=== PATIENT | male | born 1960 | race Caucasian/White ===

== ENCOUNTER 2017-09-20 12:43 | Inpatient (IN) | payer MEDICAID ==
[~2017-09-20] VITALS: Ht 195.6 cm; Wt 159.4 kg
[2017-09-20] MEDS ORDERED: ipratropium/albuterol 3ml nebule NEB ONE (13:00)
[2017-09-20] MEDS ORDERED: CefTRIAXone 2gm/D5W 50ml 50 ML IV SCH (13:05)
[2017-09-20 13:25] LABS: BASOPHILS % (AUTO) 0.2 % (0-1); EOSINOPHILS % (AUTO) 0.4 % (0-6); HEMATOCRIT 31.5 % (42.0-52.0); HEMOGLOBIN 9.7 g/dl (14.0-17.9); LYMPHOCYTES # (AUTO) 0.5 X10'3 (1.1-4.8); LYMPHOCYTES % (AUTO) 6.3 % (21-51); MEAN CORPUSCULAR HEMOGLOBIN 25.7 PG (27.0-31.0); MEAN CORPUSCULAR HGB CONC 30.9 % (33.0-36.5); MEAN PLATELET VOLUME 8.7 FL (7.4-10.4); MONOCYTES # (AUTO) 0.8 X10'3 (0-0.9); MONOCYTES % (AUTO) 9.7 % (2-12); NEUTROPHILS # (AUTO) 6.8 X10'3 (1.8-7.7); NEUTROPHILS % (AUTO) 83.4 % (42-75); PLATELET COUNT 175 X10'3 (140-440); RED BLOOD COUNT 3.79 X10'6 (4.70-6.10); RED CELL DISTRIBUTION WIDTH 19.2 % (11.5-14.5); WHITE BLOOD COUNT 8.1 X10'3 (4.5-11.0)
[2017-09-20 13:51] LABS: ALANINE AMINOTRANSFERASE 26 U/L (12-78); ALBUMIN 3.3 G/DL (3.4-5.0); ALBUMIN/GLOBULIN RATIO 0.8 (1.1-1.5); ALKALINE PHOSPHATASE 75 IU/L (46-116); ANION GAP 4 (8-16); ASPARTATE AMINO TRANSFERASE 19 U/L (10-37); BILIRUBIN,TOTAL 0.7 MG/DL (0.1-1.0); BLOOD UREA NITROGEN 18 MG/DL (7-18); BUN/CREATININE RATIO 14.5 (5.4-32.0); CHLORIDE 103 MMOL/L (99-107); CREATININE 1.24 MG/DL (0.60-1.10); GLUCOSE 122 MG/DL (70-104); SODIUM 145 MMOL/L (135-145); TOTAL CARBON DIOXIDE 37.8 MMOL/L (24-32); TOTAL PROTEIN 7.7 G/DL (6.4-8.2); eGFR 60 ML/MIN
[2017-09-20] MEDS ORDERED: CARSR60C PO (13:51)
[2017-09-20] MEDS ORDERED: OMEP20TA5 PO (13:51)
[2017-09-20] MEDS ORDERED: COU4T PO (13:51)
[2017-09-20] MEDS ORDERED: FURO80TA87 PO (13:51)
[2017-09-20] MEDS ORDERED: COU5T PO ×2 (13:51)
[2017-09-20] MEDS ORDERED: METO100T14 PO (13:51)
[2017-09-20 13:56] LABS: ABG BASE EXCESS 6.7 mmol/L (-2.0-3.0); ABG HCO3 32.3 mmol/L (22.0-26.0); ABG OXYGEN SATURATION 85.2 % (95-98); ABG PCO2 (T) 51.5 mmHg (35.0-48.0); ABG PH (T) 7.415 (7.350-7.450); ABG PO2 (T) 49.1 mmHg (83-108); ALLEN'S TEST Positive; FCOHb 1.8 % (0.5-1.5); FLOW 2 L/min; FMetHb 0.3 % (0.3-1.12); FO2Hb 83.4 % (94-100); TOTAL HEMOGLOBIN 10.6 G/dl (14.0-18.0)
[2017-09-20] MEDS ORDERED: acetaminophen 325mg tablet PO PRN ×2 (16:00)
[2017-09-20] MEDS ORDERED: HYDROcodone/acetaminophen 5mg/325mg tablet PO PRN (16:00)
[2017-09-20] MEDS ORDERED: mag hydrox/Alum hydrox/simeth 30ml oral suspension PO PRN ×2 (16:00)
[2017-09-20] MEDS ORDERED: ondansetron/PF 4mg/2ml inj IV PRN ×2 (16:00)
[2017-09-20] MEDS ORDERED: morphine 4 MG/ML inj SYRINge IV PRN ×2 (16:00)
[2017-09-20] MEDS ORDERED: magnesium hydroxide 30ml (MOM) UD suspension PO PRN ×2 (16:00)
[2017-09-20 17:05] LABS: INR 2.2 INR; PROTHROMBIN TIME 22.5 SECONDS (9.0-12.0)
[2017-09-20] MEDS: diltiazem SR 60mg capsule (twice daily) PO SCH (19:12)
[2017-09-20] MEDS: furosemide 10 MG/1 ML 10ml inj IV SCH ×2 (19:13→20:00)
[2017-09-20] MEDS ORDERED: warfarin 3mg tablet PO ONE (21:00)
[2017-09-20 22:30] VITALS: BP 115/71
[2017-09-21] VITALS (7 sets, daily range): BP systolic 108–135; BP diastolic 61–77
[2017-09-21 01:29] LABS: ALANINE AMINOTRANSFERASE 22 U/L (12-78); ALBUMIN 3.1 G/DL (3.4-5.0); ALBUMIN/GLOBULIN RATIO 0.7 (1.1-1.5); ALKALINE PHOSPHATASE 72 IU/L (46-116); ANION GAP 6 (8-16); ASPARTATE AMINO TRANSFERASE 21 U/L (10-37); BILIRUBIN,TOTAL 0.6 MG/DL (0.1-1.0); BLOOD UREA NITROGEN 18 MG/DL (7-18); BUN/CREATININE RATIO 13.3 (5.4-32.0); CALCIUM 8.5 MG/DL (8.5-10.1); CHLORIDE 103 MMOL/L (99-107); CHOL/HDL RATIO 4.5 (0.00-4.99); CHOLESTEROL 122 MG/DL (0-200); CREATININE 1.35 MG/DL (0.60-1.10); GLUCOSE 111 MG/DL (70-104); HDL CHOLESTEROL 27 MG/DL (35-60); LDL CHOLESTEROL 83 MG/DL (50-100); POTASSIUM 3.8 MMOL/L (3.5-5.1); SODIUM 143 MMOL/L (135-145); TOTAL PROTEIN 7.3 G/DL (6.4-8.2); TRIGLYCERIDES 62 MG/DL (20-135); eGFR 54 ML/MIN
[2017-09-21 05:28] LABS: BASOPHILS % (AUTO) 0.3 % (0-1); EOSINOPHILS # (AUTO) 0.2 X10'3 (0-0.9); EOSINOPHILS % (AUTO) 1.9 % (0-6); HEMATOCRIT 30.8 % (42.0-52.0); HEMOGLOBIN 9.5 g/dl (14.0-17.9); LYMPHOCYTES # (AUTO) 0.6 X10'3 (1.1-4.8); MEAN CORPUSCULAR HEMOGLOBIN 25.7 PG (27.0-31.0); MEAN CORPUSCULAR HGB CONC 30.9 % (33.0-36.5); MEAN CORPUSCULAR VOLUME 83.2 FL (78-98); MEAN PLATELET VOLUME 9.1 FL (7.4-10.4); MONOCYTES % (AUTO) 12.8 % (2-12); NEUTROPHILS # (AUTO) 6.2 X10'3 (1.8-7.7); PLATELET COUNT 174 X10'3 (140-440); RED CELL DISTRIBUTION WIDTH 19.7 % (11.5-14.5)
[2017-09-21 05:31] LABS: INR 2.1 INR; PROTHROMBIN TIME 21.2 SECONDS (9.0-12.0)
[2017-09-21] MEDS: pantoprazole 40mg Tablet.DR PO SCH (07:14)
[2017-09-21] MEDS: furosemide 10 MG/1 ML 10ml inj IV SCH ×2 (07:16→20:14)
[2017-09-21] MEDS: CefTRIAXone 2gm/D5W 50ml 50 ML IV SCH (07:22)
[2017-09-21] MEDS: azithromycin/NS 500mg/250ml 250 ML IV SCH (08:55)
[2017-09-21] MEDS: diltiazem SR 60mg capsule (twice daily) PO SCH ×2 (08:55→20:14)
[2017-09-21] MEDS: metoprolol tartrate 50mg tablet PO SCH (10:50)
[2017-09-21] MEDS: ipratropium/albuterol 3ml nebule NEB PRN (16:12)
[2017-09-21] MEDS ORDERED: warfarin 3mg tablet PO ONE (21:00)
[2017-09-22] VITALS (8 sets, daily range): BP systolic 107–124; BP diastolic 59–82
[2017-09-22 06:11] LABS: BASOPHILS % (AUTO) 0.3 % (0-1); EOSINOPHILS # (AUTO) 0.2 X10'3 (0-0.9); EOSINOPHILS % (AUTO) 2.5 % (0-6); HEMOGLOBIN 9.1 g/dl (14.0-17.9); LYMPHOCYTES # (AUTO) 0.5 X10'3 (1.1-4.8); MEAN CORPUSCULAR HEMOGLOBIN 25.4 PG (27.0-31.0); MEAN CORPUSCULAR HGB CONC 30.4 % (33.0-36.5); MEAN CORPUSCULAR VOLUME 83.5 FL (78-98); MONOCYTES % (AUTO) 12.2 % (2-12); NEUTROPHILS # (AUTO) 6.5 X10'3 (1.8-7.7); PLATELET COUNT 179 X10'3 (140-440); RED CELL DISTRIBUTION WIDTH 19.8 % (11.5-14.5); WHITE BLOOD COUNT 8.3 X10'3 (4.5-11.0)
[2017-09-22 06:13] LABS: INR 2.1 INR; PROTHROMBIN TIME 20.9 SECONDS (9.0-12.0)
[2017-09-22 06:19] LABS: ALANINE AMINOTRANSFERASE 21 U/L (12-78); ALBUMIN 3.1 G/DL (3.4-5.0); ALBUMIN/GLOBULIN RATIO 0.6 (1.1-1.5); ALKALINE PHOSPHATASE 75 IU/L (46-116); ANION GAP 3 (8-16); ASPARTATE AMINO TRANSFERASE 20 U/L (10-37); BILIRUBIN,TOTAL 0.6 MG/DL (0.1-1.0); BLOOD UREA NITROGEN 20 MG/DL (7-18); BUN/CREATININE RATIO 13.8 (5.4-32.0); CALCIUM 8.8 MG/DL (8.5-10.1); CHLORIDE 103 MMOL/L (99-107); CREATININE 1.45 MG/DL (0.60-1.10); GLUCOSE 106 MG/DL (70-104); POTASSIUM 3.8 MMOL/L (3.5-5.1); SODIUM 145 MMOL/L (135-145); TOTAL CARBON DIOXIDE 39.3 MMOL/L (24-32); eGFR 50 ML/MIN
[2017-09-22] MEDS: pantoprazole 40mg Tablet.DR PO SCH (08:38)
[2017-09-22] MEDS: CefTRIAXone 2gm/D5W 50ml 50 ML IV SCH (08:39)
[2017-09-22] MEDS: diltiazem SR 60mg capsule (twice daily) PO SCH ×2 (08:39→20:01)
[2017-09-22] MEDS: azithromycin/NS 500mg/250ml 250 ML IV SCH (08:39)
[2017-09-22] MEDS: furosemide 10 MG/1 ML 10ml inj IV SCH ×2 (08:40→20:00)
[2017-09-22 09:50] LABS: ABG BASE EXCESS 9.7 mmol/L (-2.0-3.0); ABG HCO3 36.8 mmol/L (22.0-26.0); ABG OXYGEN SATURATION 91.4 % (95-98); ABG PCO2 (T) 65.1 mmHg (35.0-48.0); ABG PO2 (T) 63.8 mmHg (83-108); ALLEN'S TEST Positive; FCOHb 1.6 % (0.5-1.5); FLOW 3 L/min; FMetHb 0.3 % (0.3-1.12); FO2Hb 89.7 % (94-100); TOTAL HEMOGLOBIN 10.3 G/dl (14.0-18.0)
[2017-09-22] MEDS: metoprolol tartrate 50mg tablet PO SCH (11:00)
[2017-09-22] MEDS: ipratropium/albuterol 3ml nebule NEB PRN (14:02)
[2017-09-22] MEDS ORDERED: iohexol 350MG/ML 100ml bottle IV ONE (17:39)
[2017-09-22] MEDS: lactobacillus rhamnosus 10,000 MMU CELLS/CAPSULE PO SCH (20:01)
[2017-09-22] MEDS ORDERED: warfarin 3mg tablet PO ONE (21:00)
[2017-09-23 03:00] VITALS: BP 114/62
[2017-09-23 05:08] LABS: BASOPHILS % (AUTO) 0.2 % (0-1); EOSINOPHILS # (AUTO) 0.2 X10'3 (0-0.9); EOSINOPHILS % (AUTO) 2.3 % (0-6); HEMATOCRIT 29.5 % (42.0-52.0); HEMOGLOBIN 9.1 g/dl (14.0-17.9); LYMPHOCYTES # (AUTO) 0.4 X10'3 (1.1-4.8); LYMPHOCYTES % (AUTO) 6.2 % (21-51); MEAN CORPUSCULAR HEMOGLOBIN 25.5 PG (27.0-31.0); MEAN CORPUSCULAR HGB CONC 30.9 % (33.0-36.5); MEAN CORPUSCULAR VOLUME 82.5 FL (78-98); MEAN PLATELET VOLUME 9.2 FL (7.4-10.4); MONOCYTES # (AUTO) 0.9 X10'3 (0-0.9); MONOCYTES % (AUTO) 13.1 % (2-12); NEUTROPHILS # (AUTO) 5.5 X10'3 (1.8-7.7); NEUTROPHILS % (AUTO) 78.2 % (42-75); PLATELET COUNT 176 X10'3 (140-440); RED BLOOD COUNT 3.57 X10'6 (4.70-6.10); RED CELL DISTRIBUTION WIDTH 19.7 % (11.5-14.5)
[2017-09-23 05:15] LABS: INR 2.2 INR; PROTHROMBIN TIME 22.5 SECONDS (9.0-12.0)
[2017-09-23 05:26] LABS: ALANINE AMINOTRANSFERASE 21 U/L (12-78); ALBUMIN 3.1 G/DL (3.4-5.0); ALBUMIN/GLOBULIN RATIO 0.7 (1.1-1.5); ALKALINE PHOSPHATASE 75 IU/L (46-116); ANION GAP 4 (8-16); ASPARTATE AMINO TRANSFERASE 21 U/L (10-37); BILIRUBIN,TOTAL 0.6 MG/DL (0.1-1.0); BLOOD UREA NITROGEN 21 MG/DL (7-18); BUN/CREATININE RATIO 14.1 (5.4-32.0); CHLORIDE 102 MMOL/L (99-107); CREATININE 1.49 MG/DL (0.60-1.10); GLUCOSE 97 MG/DL (70-104); POTASSIUM 3.7 MMOL/L (3.5-5.1); SODIUM 145 MMOL/L (135-145); TOTAL CARBON DIOXIDE 38.7 MMOL/L (24-32); TOTAL PROTEIN 7.4 G/DL (6.4-8.2); eGFR 49 ML/MIN
[2017-09-23 06:00] VITALS: BP 123/74
[2017-09-23] MEDS: lactobacillus rhamnosus 10,000 MMU CELLS/CAPSULE PO SCH ×2 (07:36→20:11)
[2017-09-23] MEDS: azithromycin 250mg tablet PO SCH (07:37)
[2017-09-23] MEDS: pantoprazole 40mg Tablet.DR PO SCH (07:37)
[2017-09-23] MEDS: diltiazem SR 60mg capsule (twice daily) PO SCH ×2 (07:37→20:11)
[2017-09-23] MEDS: metoprolol tartrate 50mg tablet PO SCH (07:38)
[2017-09-23] MEDS: furosemide 10 MG/1 ML 10ml inj IV SCH ×2 (07:38→20:11)
[2017-09-23 11:00] VITALS: BP 114/77
[2017-09-23 15:00] VITALS: BP 107/68
[2017-09-23 19:00] VITALS: BP 97/60
[2017-09-23] MEDS ORDERED: warfarin 5mg tablet PO ONE (21:00)
[2017-09-23 23:00] VITALS: BP 118/70
[2017-09-24] VITALS (7 sets, daily range): BP systolic 92–129; BP diastolic 55–75
[2017-09-24] MEDS: pantoprazole 40mg Tablet.DR PO SCH (08:03)
[2017-09-24] MEDS: lactobacillus rhamnosus 10,000 MMU CELLS/CAPSULE PO SCH ×2 (08:03→20:11)
[2017-09-24] MEDS: diltiazem SR 60mg capsule (twice daily) PO SCH ×2 (08:03→20:11)
[2017-09-24] MEDS: metoprolol tartrate 50mg tablet PO SCH (08:03)
[2017-09-24] MEDS: azithromycin 250mg tablet PO SCH (08:03)
[2017-09-24] MEDS: furosemide 10 MG/1 ML 10ml inj IV SCH ×2 (08:04→20:10)
[2017-09-24 12:11] LABS: ABG BASE EXCESS 10.5 mmol/L (-2.0-3.0); ABG HCO3 37.4 mmol/L (22.0-26.0); ABG OXYGEN SATURATION 89.2 % (95-98); ABG PCO2 (T) 63.6 mmHg (35.0-48.0); ABG PH (T) 7.387 (7.350-7.450); ABG PO2 (T) 61.3 mmHg (83-108); ALLEN'S TEST Positive; FCOHb 1.5 % (0.5-1.5); FLOW 3 L/min; FMetHb 0.3 % (0.3-1.12); FO2Hb 87.6 % (94-100); TOTAL HEMOGLOBIN 10.2 G/dl (14.0-18.0)
[2017-09-24 16:45] LABS: BASOPHILS % (AUTO) 0.1 % (0-1); EOSINOPHILS # (AUTO) 0.1 X10'3 (0-0.9); EOSINOPHILS % (AUTO) 1.9 % (0-6); HEMATOCRIT 29.1 % (42.0-52.0); LYMPHOCYTES # (AUTO) 0.4 X10'3 (1.1-4.8); LYMPHOCYTES % (AUTO) 7.8 % (21-51); MEAN CORPUSCULAR HEMOGLOBIN 25.6 PG (27.0-31.0); MEAN CORPUSCULAR HGB CONC 31.1 % (33.0-36.5); MEAN CORPUSCULAR VOLUME 82.6 FL (78-98); MEAN PLATELET VOLUME 8.7 FL (7.4-10.4); MONOCYTES # (AUTO) 0.7 X10'3 (0-0.9); MONOCYTES % (AUTO) 14.3 % (2-12); NEUTROPHILS # (AUTO) 3.9 X10'3 (1.8-7.7); NEUTROPHILS % (AUTO) 75.9 % (42-75); PLATELET COUNT 173 X10'3 (140-440); RED BLOOD COUNT 3.52 X10'6 (4.70-6.10); RED CELL DISTRIBUTION WIDTH 19.8 % (11.5-14.5); WHITE BLOOD COUNT 5.2 X10'3 (4.5-11.0)
[2017-09-24 16:54] LABS: INR 2.3 INR; PROTHROMBIN TIME 22.7 SECONDS (9.0-12.0)
[2017-09-24 16:55] LABS: ABG BASE EXCESS 11.8 mmol/L (-2.0-3.0); ABG HCO3 34.4 mmol/L (22.0-26.0); ABG OXYGEN SATURATION 97.3 % (95-98); ABG PCO2 (T) 36.9 mmHg (35.0-48.0); ABG PH (T) 7.587 (7.350-7.450); ABG PO2 (T) 83.4 mmHg (83-108); ALLEN'S TEST Positive; FCOHb 1.3 % (0.5-1.5); FMetHb 0.3 % (0.3-1.12); FO2Hb 95.7 % (94-100); RESPIRATORY RATE 12 b/min
[2017-09-24 16:59] LABS: ALANINE AMINOTRANSFERASE 24 U/L (12-78); ALBUMIN 3.1 G/DL (3.4-5.0); ALBUMIN/GLOBULIN RATIO 0.7 (1.1-1.5); ALKALINE PHOSPHATASE 69 IU/L (46-116); ANION GAP 3 (8-16); ASPARTATE AMINO TRANSFERASE 20 U/L (10-37); BILIRUBIN,TOTAL 0.7 MG/DL (0.1-1.0); BLOOD UREA NITROGEN 23 MG/DL (7-18); BUN/CREATININE RATIO 14.9 (5.4-32.0); CALCIUM 9.1 MG/DL (8.5-10.1); CHLORIDE 102 MMOL/L (99-107); CREATININE 1.54 MG/DL (0.60-1.10); GLUCOSE 88 MG/DL (70-104); POTASSIUM 4.1 MMOL/L (3.5-5.1); SODIUM 145 MMOL/L (135-145); TOTAL CARBON DIOXIDE 39.7 MMOL/L (24-32); TOTAL PROTEIN 7.3 G/DL (6.4-8.2); eGFR 47 ML/MIN
[2017-09-24] MEDS ORDERED: warfarin 3mg tablet PO ONE (21:00)
[2017-09-25] VITALS (8 sets, daily range): BP systolic 97–116; BP diastolic 44–74
[2017-09-25 05:43] LABS: BASOPHILS % (AUTO) 0.1 % (0-1); EOSINOPHILS # (AUTO) 0.1 X10'3 (0-0.9); HEMATOCRIT 29.6 % (42.0-52.0); HEMOGLOBIN 9.2 g/dl (14.0-17.9); LYMPHOCYTES # (AUTO) 0.4 X10'3 (1.1-4.8); LYMPHOCYTES % (AUTO) 8.1 % (21-51); MEAN CORPUSCULAR HEMOGLOBIN 25.8 PG (27.0-31.0); MEAN CORPUSCULAR HGB CONC 31.1 % (33.0-36.5); MEAN CORPUSCULAR VOLUME 82.7 FL (78-98); MEAN PLATELET VOLUME 8.1 FL (7.4-10.4); MONOCYTES # (AUTO) 0.7 X10'3 (0-0.9); MONOCYTES % (AUTO) 14.7 % (2-12); NEUTROPHILS # (AUTO) 3.8 X10'3 (1.8-7.7); NEUTROPHILS % (AUTO) 75.1 % (42-75); PLATELET COUNT 172 X10'3 (140-440); RED BLOOD COUNT 3.58 X10'6 (4.70-6.10); RED CELL DISTRIBUTION WIDTH 19.8 % (11.5-14.5); WHITE BLOOD COUNT 5.1 X10'3 (4.5-11.0)
[2017-09-25 05:53] LABS: INR 2.2 INR; PROTHROMBIN TIME 21.9 SECONDS (9.0-12.0)
[2017-09-25 05:58] LABS: ALANINE AMINOTRANSFERASE 23 U/L (12-78); ALBUMIN 3.1 G/DL (3.4-5.0); ALBUMIN/GLOBULIN RATIO 0.8 (1.1-1.5); ALKALINE PHOSPHATASE 68 IU/L (46-116); ANION GAP 2 (8-16); ASPARTATE AMINO TRANSFERASE 21 U/L (10-37); BILIRUBIN,TOTAL 0.8 MG/DL (0.1-1.0); BLOOD UREA NITROGEN 22 MG/DL (7-18); CHLORIDE 103 MMOL/L (99-107); CREATININE 1.47 MG/DL (0.60-1.10); GLUCOSE 98 MG/DL (70-104); POTASSIUM 3.7 MMOL/L (3.5-5.1); SODIUM 145 MMOL/L (135-145); TOTAL CARBON DIOXIDE 39.7 MMOL/L (24-32); TOTAL PROTEIN 7.2 G/DL (6.4-8.2); eGFR 49 ML/MIN
[2017-09-25] MEDS: metoprolol tartrate 50mg tablet PO SCH (07:53)
[2017-09-25] MEDS: lactobacillus rhamnosus 10,000 MMU CELLS/CAPSULE PO SCH ×2 (07:53→19:20)
[2017-09-25] MEDS: pantoprazole 40mg Tablet.DR PO SCH (07:53)
[2017-09-25] MEDS: diltiazem SR 60mg capsule (twice daily) PO SCH ×2 (07:53→19:18)
[2017-09-25] MEDS: azithromycin 250mg tablet PO SCH (07:54)
[2017-09-25] MEDS: furosemide 10 MG/1 ML 10ml inj IV SCH ×2 (07:56→19:19)
[2017-09-25 10:46] LABS: ABG BASE EXCESS 11.4 mmol/L (-2.0-3.0); ABG HCO3 38.5 mmol/L (22.0-26.0); ABG OXYGEN SATURATION 95.3 % (95-98); ABG PCO2 (T) 66.3 mmHg (35.0-48.0); ABG PH (T) 7.382 (7.350-7.450); ABG PO2 (T) 84.3 mmHg (83-108); ALLEN'S TEST Positive; FCOHb 1.6 % (0.5-1.5); FLOW 5 L/min; FMetHb 0.3 % (0.3-1.12); FO2Hb 93.5 % (94-100); TOTAL HEMOGLOBIN 10.3 G/dl (14.0-18.0)
[2017-09-25] MEDS ORDERED: warfarin 3mg tablet PO ONE (21:00)
[2017-09-26 03:00] VITALS: BP 115/67
[2017-09-26 06:35] VITALS: BP 115/67
[2017-09-26] MEDS: furosemide 10 MG/1 ML 10ml inj IV SCH ×2 (08:00→09:56)
[2017-09-26 08:02] LABS: INR 2.4 INR
[2017-09-26] MEDS: metoprolol tartrate 50mg tablet PO SCH (09:57)
[2017-09-26] MEDS: lactobacillus rhamnosus 10,000 MMU CELLS/CAPSULE PO SCH (09:57)
[2017-09-26] MEDS: pantoprazole 40mg Tablet.DR PO SCH (09:57)
[2017-09-26] MEDS: azithromycin 250mg tablet PO SCH (09:57)
[2017-09-26] MEDS: diltiazem SR 60mg capsule (twice daily) PO SCH (09:58)
[2017-09-26] MEDS ORDERED: FURO40TA4 PO (10:01)
== END 2017-09-26 12:42 | disposition home health service (06) | DRG 140 ==
LOC: ER 12:43 → ED HOLD 15:58 → PCU 3S 22:29
PROVIDERS: ADMIT Family Medicine; ATTEND Family Medicine
PROC: B32T1ZZ Computerized Tomography (CT Scan) of Left Pulmonary Artery using Low Osmolar Contrast (ICD-10-PCS; 2017-09-22)
PROC: B3201ZZ Computerized Tomography (CT Scan) of Thoracic Aorta using Low Osmolar Contrast (ICD-10-PCS; 2017-09-22)
PROC: B32S1ZZ Computerized Tomography (CT Scan) of Right Pulmonary Artery using Low Osmolar Contrast (ICD-10-PCS; 2017-09-22)
PROC: 5A09357 Assistance with Respiratory Ventilation, Less than 24 Consecutive Hours, Continuous Positive Airway Pressure (ICD-10-PCS; principal; 2017-09-24)
DX: J44.0 Chronic obstructive pulmonary disease with (acute) lower respiratory infection (principal); J96.02 Acute respiratory failure with hypercapnia; I50.43 Acute on chronic combined systolic (congestive) and diastolic (congestive) heart failure; J18.9 Pneumonia, unspecified organism; Z99.81 Dependence on supplemental oxygen; E87.2 Acidosis; Z68.41 Body mass index [BMI] 40.0-44.9, adult; R16.2 Hepatomegaly with splenomegaly, not elsewhere classified; I13.0 Hypertensive heart and chronic kidney disease with heart failure and stage 1 through stage 4 chronic kidney disease, or unspecified chronic kidney disease; E66.01 Morbid (severe) obesity due to excess calories; I48.91 Unspecified atrial fibrillation; D64.9 Anemia, unspecified; K44.9 Diaphragmatic hernia without obstruction or gangrene; N18.9 Chronic kidney disease, unspecified; Z79.01 Long term (current) use of anticoagulants; Z86.73 Personal history of transient ischemic attack (TIA), and cerebral infarction without residual deficits; Z87.11 Personal history of peptic ulcer disease; Z87.891 Personal history of nicotine dependence
CPT/HCPCS: 36415; 36600; 71046; 71275; 80053; 80061; 82803; 83605; 83880; 84484; 85018; 85025; 85610; 87040; 87070; 93005; 93306; 94640; 94660; 94760; 96360; 97116; 97161; 97530; 99285; A4620; J0456; J0696; J1940; J7030; Q9967

== ENCOUNTER 2017-10-29 01:16 | Inpatient (IN) | payer MEDICAID ==
[~2017-10-29] VITALS: Ht 195.6 cm; Wt 164.0 kg
[~2017-10-29 01:16] MED LIST: CARSR60C PO; COU5T PO; FURO40TA4 PO; METO100T14 PO; OMEP20TA5 PO
[2017-10-29] MEDS ORDERED: ipratropium/albuterol 3ml nebule NEB ONE (01:25)
[2017-10-29] MEDS ORDERED: dexamethasone 4mg tablet PO ONE ×2 (01:25→01:45)
[2017-10-29] MEDS ORDERED: ALB0.5UD IH (01:36)
[2017-10-29] MEDS ORDERED: FURO-150 PO (01:36)
[2017-10-29 02:09] LABS: BASOPHILS % (AUTO) 0.1 % (0-1); EOSINOPHILS # (AUTO) 0.1 X10'3 (0-0.9); EOSINOPHILS % (AUTO) 2.1 % (0-6); HEMATOCRIT 30.6 % (42.0-52.0); HEMOGLOBIN 9.1 g/dl (14.0-17.9); LYMPHOCYTES # (AUTO) 0.4 X10'3 (1.1-4.8); LYMPHOCYTES % (AUTO) 5.7 % (21-51); MEAN CORPUSCULAR HEMOGLOBIN 23.1 PG (27.0-31.0); MEAN CORPUSCULAR HGB CONC 29.7 % (33.0-36.5); MEAN CORPUSCULAR VOLUME 77.8 FL (78-98); MEAN PLATELET VOLUME 8.9 FL (7.4-10.4); MONOCYTES # (AUTO) 1.1 X10'3 (0-0.9); MONOCYTES % (AUTO) 14.6 % (2-12); NEUTROPHILS # (AUTO) 5.6 X10'3 (1.8-7.7); NEUTROPHILS % (AUTO) 77.5 % (42-75); PLATELET COUNT 181 X10'3 (140-440); RED BLOOD COUNT 3.94 X10'6 (4.70-6.10); WHITE BLOOD COUNT 7.2 X10'3 (4.5-11.0)
[2017-10-29 02:11] LABS: ALANINE AMINOTRANSFERASE 17 U/L (12-78); ALBUMIN 3.1 G/DL (3.4-5.0); ALBUMIN/GLOBULIN RATIO 0.8 (1.1-1.5); ALKALINE PHOSPHATASE 81 IU/L (46-116); ANION GAP 2 (8-16); ASPARTATE AMINO TRANSFERASE 20 U/L (10-37); BILIRUBIN,TOTAL 0.5 MG/DL (0.1-1.0); BLOOD UREA NITROGEN 27 MG/DL (7-18); BUN/CREATININE RATIO 15.1 (5.4-32.0); CALCIUM 8.7 MG/DL (8.5-10.1); CHLORIDE 102 MMOL/L (99-107); CREATININE 1.79 MG/DL (0.60-1.10); GLUCOSE 115 MG/DL (70-104); POTASSIUM 3.8 MMOL/L (3.5-5.1); SODIUM 143 MMOL/L (135-145); TOTAL CARBON DIOXIDE 38.8 MMOL/L (24-32); TOTAL PROTEIN 7.1 G/DL (6.4-8.2); eGFR 39 ML/MIN
[2017-10-29 02:15] LABS: ABG BASE EXCESS 7.7 mmol/L (-2.0-3.0); ABG HCO3 34.6 mmol/L (22.0-26.0); ABG OXYGEN SATURATION 98.2 % (95-98); ABG PCO2 (T) 61.2 mmHg (35.0-48.0); ABG PH (T) 7.368 (7.350-7.450); ABG PO2 (T) 110.4 mmHg (83-108); ALLEN'S TEST Positive; FCOHb 0.7 % (0.5-1.5); FLOW 7 L/min; FMetHb 0.1 % (0.3-1.12); FO2Hb 97.4 % (94-100); PATIENT TEMPERATURE 36.7; TOTAL HEMOGLOBIN 10.1 G/dl (14.0-18.0)
[2017-10-29] MEDS ORDERED: magnesium hydroxide 30ml (MOM) UD suspension PO PRN (04:15)
[2017-10-29] MEDS ORDERED: ondansetron/PF 4mg/2ml inj IV PRN (04:15)
[2017-10-29] MEDS ORDERED: HYDROcodone/acetaminophen 5mg/325mg tablet PO PRN (04:15)
[2017-10-29] MEDS ORDERED: mag hydrox/Alum hydrox/simeth 30ml oral suspension PO PRN (04:15)
[2017-10-29] MEDS ORDERED: acetaminophen 325mg tablet PO PRN (04:15)
[2017-10-29] MEDS ORDERED: furosemide 10 MG/1 ML 10ml inj IV ONE (04:25)
[2017-10-29] MEDS ORDERED: albuterol 2.5 MG/3 ML nebule NEB PRN (04:40)
[2017-10-29 04:43] LABS: INR 2.2 INR; PROTHROMBIN TIME 22.2 SECONDS (9.0-12.0)
[2017-10-29] MEDS ORDERED: etomidate 2mg/ml inj. ONE (06:00)
[2017-10-29] MEDS ORDERED: rocuronium 10mg/ml inj IV ONE (06:00)
[2017-10-29] MEDS ORDERED: enoxaparin 40mg/0.4ml syringe SQ SCH (08:00)
[2017-10-29] MEDS ORDERED: furosemide 10 MG/1 ML 10ml inj IV SCH (08:00)
[2017-10-29] MEDS: diltiazem CD 180mg cap (once-daily) PO SCH (09:00)
[2017-10-29] MEDS: metoprolol tartrate 50mg tablet PO SCH (09:00)
[2017-10-29] MEDS: docusate sod 100mg capsule PO SCH ×2 (09:00→20:16)
[2017-10-29 13:17] VITALS: BP 115/83
[2017-10-29 20:00] VITALS: BP 128/75
[2017-10-29] MEDS: warfarin 3mg tablet PO SCH (20:16)
[2017-10-29] MEDS: furosemide 40mg/4ml inj IV SCH (20:17)
[2017-10-29] MEDS ORDERED: temazepam 15mg capsule PO PRN (21:00)
[2017-10-30] VITALS: BP 105/57
[2017-10-30 07:21] LABS: BASOPHILS % (AUTO) 0 % (0-1); EOSINOPHILS # (AUTO) 0.1 X10'3 (0-0.9); EOSINOPHILS % (AUTO) 1.2 % (0-6); HEMOGLOBIN 8.9 g/dl (14.0-17.9); LYMPHOCYTES # (AUTO) 0.2 X10'3 (1.1-4.8); LYMPHOCYTES % (AUTO) 2.9 % (21-51); MEAN CORPUSCULAR HGB CONC 29.5 % (33.0-36.5); MEAN CORPUSCULAR VOLUME 77.9 FL (78-98); MEAN PLATELET VOLUME 8.7 FL (7.4-10.4); MONOCYTES # (AUTO) 0.9 X10'3 (0-0.9); MONOCYTES % (AUTO) 10.1 % (2-12); NEUTROPHILS # (AUTO) 7.3 X10'3 (1.8-7.7); NEUTROPHILS % (AUTO) 85.8 % (42-75); PLATELET COUNT 188 X10'3 (140-440); RED BLOOD COUNT 3.85 X10'6 (4.70-6.10); RED CELL DISTRIBUTION WIDTH 19.3 % (11.5-14.5); WHITE BLOOD COUNT 8.5 X10'3 (4.5-11.0)
[2017-10-30 07:36] LABS: INR 2.4 INR; PROTHROMBIN TIME 24.1 SECONDS (9.0-12.0)
[2017-10-30 07:42] LABS: ALBUMIN 3.3 G/DL (3.4-5.0); ANION GAP 2 (8-16); BLOOD UREA NITROGEN 34 MG/DL (7-18); BUN/CREATININE RATIO 17.9 (5.4-32.0); CALCIUM 9.2 MG/DL (8.5-10.1); CHLORIDE 101 MMOL/L (99-107); GLUCOSE 120 MG/DL (70-104); POTASSIUM 4.3 MMOL/L (3.5-5.1); SODIUM 142 MMOL/L (135-145); eGFR 37 ML/MIN
[2017-10-30] MEDS: docusate sod 100mg capsule PO SCH ×2 (08:51→20:11)
[2017-10-30] MEDS: diltiazem CD 180mg cap (once-daily) PO SCH (08:52)
[2017-10-30] MEDS: furosemide 40mg/4ml inj IV SCH ×2 (08:53→20:10)
[2017-10-30] MEDS: metoprolol tartrate 50mg tablet PO SCH (08:53)
[2017-10-30 12:22] VITALS: BP 120/81
[2017-10-30 20:00] VITALS: BP 124/64
[2017-10-30] MEDS: warfarin 3mg tablet PO SCH (20:11)
[2017-10-31] VITALS: BP 118/77
[2017-10-31] MEDS: acetaminophen 325mg tablet PO PRN (01:03)
[2017-10-31] MEDS ORDERED: ALBU18HF2 (06:12)
[2017-10-31 06:56] VITALS: BP 111/60
[2017-10-31 06:58] LABS: BASOPHILS % (AUTO) 0.1 % (0-1); EOSINOPHILS # (AUTO) 0.2 X10'3 (0-0.9); EOSINOPHILS % (AUTO) 1.6 % (0-6); HEMATOCRIT 31.3 % (42.0-52.0); HEMOGLOBIN 9.2 g/dl (14.0-17.9); LYMPHOCYTES # (AUTO) 0.6 X10'3 (1.1-4.8); LYMPHOCYTES % (AUTO) 4.8 % (21-51); MEAN CORPUSCULAR HGB CONC 29.4 % (33.0-36.5); MEAN CORPUSCULAR VOLUME 78.2 FL (78-98); MEAN PLATELET VOLUME 9.5 FL (7.4-10.4); MONOCYTES # (AUTO) 1.4 X10'3 (0-0.9); MONOCYTES % (AUTO) 11.7 % (2-12); NEUTROPHILS # (AUTO) 9.5 X10'3 (1.8-7.7); NEUTROPHILS % (AUTO) 81.8 % (42-75); PLATELET COUNT 207 X10'3 (140-440); WHITE BLOOD COUNT 11.6 X10'3 (4.5-11.0)
[2017-10-31 07:08] LABS: INR 2.4 INR; PROTHROMBIN TIME 23.9 SECONDS (9.0-12.0)
[2017-10-31 07:09] LABS: ALBUMIN 3.5 G/DL (3.4-5.0); ANION GAP 3 (8-16); BLOOD UREA NITROGEN 45 MG/DL (7-18); BUN/CREATININE RATIO 20.3 (5.4-32.0); CALCIUM 9.1 MG/DL (8.5-10.1); CHLORIDE 100 MMOL/L (99-107); CREATININE 2.22 MG/DL (0.60-1.10); GLUCOSE 108 MG/DL (70-104); POTASSIUM 4.4 MMOL/L (3.5-5.1); SODIUM 142 MMOL/L (135-145); TOTAL CARBON DIOXIDE 38.9 MMOL/L (24-32); eGFR 31 ML/MIN
[2017-10-31 07:29] LABS: HYPOCHROMASIA 1+; PLATELET ESTIMATE NORMAL
[2017-10-31 07:30] LABS: ANISOCYTOSIS 2+; STOMATOCYTES FEW
[2017-10-31] MEDS: docusate sod 100mg capsule PO SCH ×2 (08:29→20:09)
[2017-10-31] MEDS: furosemide 40mg/4ml inj IV SCH (08:29)
[2017-10-31] MEDS: metoprolol tartrate 50mg tablet PO SCH (08:29)
[2017-10-31] MEDS: diltiazem CD 180mg cap (once-daily) PO SCH (08:29)
[2017-10-31 11:51] VITALS: BP 118/78
[2017-10-31] MEDS: normal saline 1000ml 1,000 ML IV SCH (17:00)
[2017-10-31 17:08] LABS: SODIUM,URINE RANDOM < 15 MEQ/L; TOTAL PROTEIN,URINE RANDOM 68.4 MG/DL
[2017-10-31 17:17] LABS: CLARITY,URINE SLIGHTLY CLOUDY (Clear); COLOR,URINE YELLOW (Yellow); GLUCOSE, URINE NEGATIVE (Neg); KETONES,URINE NEGATIVE (Neg); LEUKOCYTE ESTERASE ,URINE NEGATIVE (Neg); NITRITES, URINE NEGATIVE (Neg); OCCULT BLOOD,URINE NEGATIVE (Neg); PH,URINE 5.5 (4.8-8.0); PROTEIN,URINE 30 mg/dl (Neg)
[2017-10-31 17:21] LABS: UA COLLECTION TYPE NON-SPECIFIED
[2017-10-31 17:33] LABS: MUCUS STRANDS FEW /LPF (Neg); RBC,URINE 0-2 /HPF (0-2); SQUAMOUS EPITHELIAL CELL,UR FEW /LPF (FEW); WBC,URINE 0-4 /HPF (0-4)
[2017-10-31 17:34] LABS: HYALINE CASTS 0-3 /LPF (NEGATIVE)
[2017-10-31 17:41] LABS: BACTERIA,URINE NONE SEEN /HPF (Neg)
[2017-10-31 17:42] LABS: AMORPHOUS URATES 1+
[2017-10-31 17:54] LABS: UA EOSINOPHILS NO EOS /HPF
[2017-10-31] MEDS: predniSONE 20 mg tablet PO SCH (18:38)
[2017-10-31] MEDS: ipratropium/albuterol 3ml nebule NEB SCH ×2 (19:32→23:17)
[2017-10-31 20:00] VITALS: BP 126/72
[2017-10-31] MEDS ORDERED: warfarin 5mg tablet PO SCH (21:00)
[2017-11-01] VITALS: BP 113/84
[2017-11-01 05:15] LABS: BASOPHILS % (AUTO) 0 % (0-1); EOSINOPHILS # (AUTO) 0.2 X10'3 (0-0.9); EOSINOPHILS % (AUTO) 1.9 % (0-6); HEMATOCRIT 30.7 % (42.0-52.0); HEMOGLOBIN 9.1 g/dl (14.0-17.9); LYMPHOCYTES # (AUTO) 0.1 X10'3 (1.1-4.8); LYMPHOCYTES % (AUTO) 1.5 % (21-51); MEAN CORPUSCULAR HEMOGLOBIN 22.9 PG (27.0-31.0); MEAN CORPUSCULAR HGB CONC 29.6 % (33.0-36.5); MEAN CORPUSCULAR VOLUME 77.2 FL (78-98); MEAN PLATELET VOLUME 9.3 FL (7.4-10.4); MONOCYTES # (AUTO) 0.4 X10'3 (0-0.9); MONOCYTES % (AUTO) 4.8 % (2-12); NEUTROPHILS # (AUTO) 7.6 X10'3 (1.8-7.7); NEUTROPHILS % (AUTO) 91.8 % (42-75); PLATELET COUNT 171 X10'3 (140-440); RED BLOOD COUNT 3.97 X10'6 (4.70-6.10); RED CELL DISTRIBUTION WIDTH 18.9 % (11.5-14.5); WHITE BLOOD COUNT 8.3 X10'3 (4.5-11.0)
[2017-11-01 05:35] LABS: INR 2.7 INR; PROTHROMBIN TIME 26.8 SECONDS (9.0-12.0)
[2017-11-01 05:57] LABS: ALBUMIN 3.3 G/DL (3.4-5.0); ANION GAP 4 (8-16); BLOOD UREA NITROGEN 52 MG/DL (7-18); BUN/CREATININE RATIO 24.3 (5.4-32.0); CALCIUM 9.1 MG/DL (8.5-10.1); CHLORIDE 100 MMOL/L (99-107); CREATININE 2.14 MG/DL (0.60-1.10); GLUCOSE 132 MG/DL (70-104); POTASSIUM 4.7 MMOL/L (3.5-5.1); SODIUM 140 MMOL/L (135-145); TOTAL CARBON DIOXIDE 36.1 MMOL/L (24-32); eGFR 32 ML/MIN
[2017-11-01 07:20] VITALS: BP 118/85
[2017-11-01] MEDS: metoprolol tartrate 50mg tablet PO SCH (07:36)
[2017-11-01] MEDS: predniSONE 20 mg tablet PO SCH (07:37)
[2017-11-01] MEDS: diltiazem CD 180mg cap (once-daily) PO SCH (07:37)
[2017-11-01] MEDS: docusate sod 100mg capsule PO SCH ×2 (07:37→20:01)
[2017-11-01] MEDS: ipratropium/albuterol 3ml nebule NEB SCH ×5 (08:12→23:36)
[2017-11-01 11:05] VITALS: BP 102/64
[2017-11-01 11:43] LABS: HEMOGLOBIN A1C 5.6 % (4.5-6.2)
[2017-11-01] MEDS: normal saline 1000ml 1,000 ML IV SCH ×2 (12:23→19:56)
[2017-11-01] MEDS: emollient combination-Eucerin 250 ML LOTION TP SCH (19:56)
[2017-11-01 20:00] VITALS: BP 133/85
[2017-11-02] VITALS: BP 138/85
[2017-11-02 05:29] LABS: BASOPHILS % (AUTO) 0.1 % (0-1); EOSINOPHILS # (AUTO) 0.1 X10'3 (0-0.9); EOSINOPHILS % (AUTO) 0.7 % (0-6); HEMATOCRIT 31.3 % (42.0-52.0); HEMOGLOBIN 9.3 g/dl (14.0-17.9); LYMPHOCYTES # (AUTO) 0.3 X10'3 (1.1-4.8); LYMPHOCYTES % (AUTO) 4.2 % (21-51); MEAN CORPUSCULAR HEMOGLOBIN 22.8 PG (27.0-31.0); MEAN CORPUSCULAR HGB CONC 29.5 % (33.0-36.5); MEAN CORPUSCULAR VOLUME 77.3 FL (78-98); MEAN PLATELET VOLUME 9.3 FL (7.4-10.4); MONOCYTES % (AUTO) 12.8 % (2-12); NEUTROPHILS # (AUTO) 6.4 X10'3 (1.8-7.7); NEUTROPHILS % (AUTO) 82.2 % (42-75); PLATELET COUNT 170 X10'3 (140-440); RED BLOOD COUNT 4.05 X10'6 (4.70-6.10); RED CELL DISTRIBUTION WIDTH 19.1 % (11.5-14.5); WHITE BLOOD COUNT 7.8 X10'3 (4.5-11.0)
[2017-11-02 05:48] LABS: INR 2.9 INR; PROTHROMBIN TIME 28.9 SECONDS (9.0-12.0)
[2017-11-02 05:51] LABS: ALBUMIN 3.3 G/DL (3.4-5.0); ANION GAP 2 (8-16); BLOOD UREA NITROGEN 54 MG/DL (7-18); BUN/CREATININE RATIO 27.7 (5.4-32.0); CALCIUM 9.3 MG/DL (8.5-10.1); CHLORIDE 101 MMOL/L (99-107); CREATININE 1.95 MG/DL (0.60-1.10); GLUCOSE 107 MG/DL (70-104); POTASSIUM 4.4 MMOL/L (3.5-5.1); SODIUM 141 MMOL/L (135-145); TOTAL CARBON DIOXIDE 37.8 MMOL/L (24-32); eGFR 36 ML/MIN
[2017-11-02] MEDS: ipratropium/albuterol 3ml nebule NEB SCH ×4 (06:49→20:14)
[2017-11-02 07:00] VITALS: BP 169/87
[2017-11-02] MEDS: docusate sod 100mg capsule PO SCH ×2 (08:00→19:00)
[2017-11-02] MEDS: diltiazem CD 180mg cap (once-daily) PO SCH (08:08)
[2017-11-02] MEDS: predniSONE 20 mg tablet PO SCH (08:08)
[2017-11-02] MEDS: metoprolol tartrate 50mg tablet PO SCH (08:09)
[2017-11-02] MEDS: normal saline 1000ml 1,000 ML IV SCH (08:13)
[2017-11-02] MEDS: emollient combination-Eucerin 250 ML LOTION TP SCH ×2 (08:14→20:00)
[2017-11-02] MEDS: HYDROcodone/acetaminophen 10/325mg tab PO PRN (09:55)
[2017-11-02 11:00] VITALS: BP 117/88
[2017-11-02] MEDS: furosemide 40mg/4ml inj IV SCH ×2 (17:10→19:00)
[2017-11-02 20:00] VITALS: BP 142/84
[2017-11-03] VITALS: BP 119/73
[2017-11-03] MEDS: ipratropium/albuterol 3ml nebule NEB SCH ×6 (00:10→23:00)
[2017-11-03 04:53] LABS: BASOPHILS % (AUTO) 0.1 % (0-1); EOSINOPHILS # (AUTO) 0.1 X10'3 (0-0.9); EOSINOPHILS % (AUTO) 1.3 % (0-6); HEMATOCRIT 32.7 % (42.0-52.0); HEMOGLOBIN 9.6 g/dl (14.0-17.9); LYMPHOCYTES # (AUTO) 0.3 X10'3 (1.1-4.8); LYMPHOCYTES % (AUTO) 3.7 % (21-51); MEAN CORPUSCULAR HEMOGLOBIN 22.8 PG (27.0-31.0); MEAN CORPUSCULAR HGB CONC 29.5 % (33.0-36.5); MEAN CORPUSCULAR VOLUME 77.2 FL (78-98); MONOCYTES # (AUTO) 1.2 X10'3 (0-0.9); MONOCYTES % (AUTO) 14.8 % (2-12); NEUTROPHILS # (AUTO) 6.3 X10'3 (1.8-7.7); NEUTROPHILS % (AUTO) 80.1 % (42-75); PLATELET COUNT 181 X10'3 (140-440); RED BLOOD COUNT 4.24 X10'6 (4.70-6.10); RED CELL DISTRIBUTION WIDTH 18.5 % (11.5-14.5); WHITE BLOOD COUNT 7.9 X10'3 (4.5-11.0)
[2017-11-03 05:00] LABS: INR 2.7 INR; PROTHROMBIN TIME 26.8 SECONDS (9.0-12.0)
[2017-11-03 05:14] LABS: ALBUMIN 3.5 G/DL (3.4-5.0); ANION GAP 4 (8-16); BLOOD UREA NITROGEN 56 MG/DL (7-18); BUN/CREATININE RATIO 27.9 (5.4-32.0); CALCIUM 9.3 MG/DL (8.5-10.1); CHLORIDE 101 MMOL/L (99-107); CREATININE 2.01 MG/DL (0.60-1.10); GLUCOSE 103 MG/DL (70-104); POTASSIUM 4.5 MMOL/L (3.5-5.1); SODIUM 143 MMOL/L (135-145); TOTAL CARBON DIOXIDE 37.6 MMOL/L (24-32); eGFR 34 ML/MIN
[2017-11-03] MEDS: docusate sod 100mg capsule PO SCH ×2 (08:00→20:43)
[2017-11-03] MEDS: metoprolol tartrate 50mg tablet PO SCH (08:46)
[2017-11-03] MEDS: predniSONE 20 mg tablet PO SCH (08:46)
[2017-11-03] MEDS: diltiazem CD 180mg cap (once-daily) PO SCH (08:46)
[2017-11-03] MEDS: furosemide 40mg/4ml inj IV SCH ×2 (08:46→20:41)
[2017-11-03] MEDS: emollient combination-Eucerin 250 ML LOTION TP SCH ×2 (08:47→20:40)
[2017-11-03 11:00] VITALS: BP 108/69
[2017-11-03 18:00] VITALS: BP 145/85
[2017-11-03] MEDS ORDERED: furosemide 40mg/4ml inj IV SCH (20:00)
[2017-11-03] MEDS: warfarin 3mg tablet PO SCH (20:43)
[2017-11-03] MEDS: acetaminophen 325mg tablet PO PRN (21:49)
[2017-11-04] VITALS: BP 136/82
[2017-11-04 05:30] LABS: INR 2.3 INR; PROTHROMBIN TIME 23.2 SECONDS (9.0-12.0)
[2017-11-04] MEDS: ipratropium/albuterol 3ml nebule NEB SCH ×5 (07:34→22:47)
[2017-11-04 07:52] VITALS: BP 136/75
[2017-11-04] MEDS: metoprolol tartrate 50mg tablet PO SCH (07:53)
[2017-11-04] MEDS: furosemide 40mg/4ml inj IV SCH ×2 (07:53→20:36)
[2017-11-04] MEDS: docusate sod 100mg capsule PO SCH ×2 (07:53→20:36)
[2017-11-04] MEDS: predniSONE 20 mg tablet PO SCH (07:53)
[2017-11-04] MEDS: emollient combination-Eucerin 250 ML LOTION TP SCH ×2 (07:53→20:46)
[2017-11-04] MEDS: diltiazem CD 180mg cap (once-daily) PO SCH (07:53)
[2017-11-04 08:29] LABS: ALBUMIN 3.5 G/DL (3.4-5.0); ANION GAP 3 (8-16); BLOOD UREA NITROGEN 57 MG/DL (7-18); BUN/CREATININE RATIO 29.1 (5.4-32.0); CALCIUM 9.2 MG/DL (8.5-10.1); CHLORIDE 101 MMOL/L (99-107); CREATININE 1.96 MG/DL (0.60-1.10); GLUCOSE 100 MG/DL (70-104); POTASSIUM 4.4 MMOL/L (3.5-5.1); SODIUM 141 MMOL/L (135-145); TOTAL CARBON DIOXIDE 36.7 MMOL/L (24-32); eGFR 35 ML/MIN
[2017-11-04 12:16] VITALS: BP 120/80
[2017-11-04 20:00] VITALS: BP 122/62
[2017-11-04] MEDS: acetaminophen 325mg tablet PO PRN (20:53)
[2017-11-04] MEDS ORDERED: warfarin 5mg tablet PO SCH (21:00)
[2017-11-05] VITALS: BP 126/75
[2017-11-05] MEDS: ipratropium/albuterol 3ml nebule NEB SCH ×2 (07:19→12:01)
[2017-11-05 07:23] VITALS: BP 124/77
[2017-11-05 08:14] LABS: INR 2.1 INR; PROTHROMBIN TIME 21.3 SECONDS (9.0-12.0)
[2017-11-05] MEDS ORDERED: metolazone 2.5mg tablet PO SCH (08:20)
[2017-11-05] MEDS: diltiazem CD 180mg cap (once-daily) PO SCH (09:04)
[2017-11-05] MEDS: docusate sod 100mg capsule PO SCH ×2 (09:04→20:00)
[2017-11-05] MEDS: metoprolol tartrate 50mg tablet PO SCH (09:04)
[2017-11-05] MEDS: emollient combination-Eucerin 250 ML LOTION TP SCH ×2 (09:05→20:00)
[2017-11-05] MEDS: furosemide 40mg/4ml inj IV SCH (09:16)
[2017-11-05 09:27] LABS: ALBUMIN 3.4 G/DL (3.4-5.0); ANION GAP 4 (8-16); BLOOD UREA NITROGEN 59 MG/DL (7-18); BUN/CREATININE RATIO 31.1 (5.4-32.0); CALCIUM 9.3 MG/DL (8.5-10.1); CHLORIDE 101 MMOL/L (99-107); GLUCOSE 121 MG/DL (70-104); POTASSIUM 4.9 MMOL/L (3.5-5.1); SODIUM 141 MMOL/L (135-145); TOTAL CARBON DIOXIDE 35.6 MMOL/L (24-32); eGFR 37 ML/MIN
[2017-11-05 11:17] VITALS: BP 117/88
[2017-11-05] MEDS ORDERED: levalbuterol 0.63mg/3ml nebule IH PRN (13:55)
[2017-11-05 18:00] VITALS: BP 135/66
[2017-11-05] MEDS: warfarin 3mg tablet PO SCH (20:31)
[2017-11-05] MEDS: acetaminophen 325mg tablet PO PRN (20:50)
[2017-11-05] MEDS ORDERED: warfarin 5mg tablet PO ONE (21:00)
[2017-11-05] MEDS: furosemide 40mg tablet PO SCH (22:56)
[2017-11-06] VITALS (18 sets, daily range): BP systolic 100–139; BP diastolic 54–86
[2017-11-06 06:41] LABS: ABG BASE EXCESS 1.7 mmol/L (-2.0-3.0); ABG HCO3 32.5 mmol/L (22.0-26.0); ABG OXYGEN SATURATION 84.8 % (95-98); ABG PCO2 (T) 95.5 mmHg (35.0-48.0); ABG PO2 (T) 59.3 mmHg (83-108); FLOW 4 L/min; FMetHb 0.1 % (0.3-1.12); FO2Hb 83.9 % (94-100); TOTAL HEMOGLOBIN 10.7 G/dl (14.0-18.0)
[2017-11-06] MEDS ORDERED: furosemide 40mg/4ml inj IV ONE (06:45)
[2017-11-06 07:27] LABS: BASOPHILS # (AUTO) 0.1 X10'3 (0-0.2); BASOPHILS % (AUTO) 1.3 % (0-1); EOSINOPHILS % (AUTO) 0.1 % (0-6); HEMOGLOBIN 9.4 g/dl (14.0-17.9); LYMPHOCYTES # (AUTO) 0.2 X10'3 (1.1-4.8); LYMPHOCYTES % (AUTO) 1.7 % (21-51); MEAN CORPUSCULAR HEMOGLOBIN 22.7 PG (27.0-31.0); MEAN CORPUSCULAR HGB CONC 29.5 % (33.0-36.5); MEAN PLATELET VOLUME 8.9 FL (7.4-10.4); MONOCYTES # (AUTO) 1.3 X10'3 (0-0.9); MONOCYTES % (AUTO) 12.9 % (2-12); NEUTROPHILS # (AUTO) 8.2 X10'3 (1.8-7.7); PLATELET COUNT 191 X10'3 (140-440); RED BLOOD COUNT 4.16 X10'6 (4.70-6.10); RED CELL DISTRIBUTION WIDTH 18.6 % (11.5-14.5); WHITE BLOOD COUNT 9.8 X10'3 (4.5-11.0)
[2017-11-06 07:38] LABS: INR 2.2 INR; PROTHROMBIN TIME 22.3 SECONDS (9.0-12.0)
[2017-11-06 07:49] LABS: ALANINE AMINOTRANSFERASE 47 U/L (12-78); ALBUMIN 3.5 G/DL (3.4-5.0); ALBUMIN/GLOBULIN RATIO 0.9 (1.1-1.5); ALKALINE PHOSPHATASE 69 IU/L (46-116); ANION GAP 5 (8-16); ASPARTATE AMINO TRANSFERASE 52 U/L (10-37); BLOOD UREA NITROGEN 64 MG/DL (7-18); BUN/CREATININE RATIO 30.2 (5.4-32.0); CHLORIDE 102 MMOL/L (99-107); CREATININE 2.12 MG/DL (0.60-1.10); GLUCOSE 108 MG/DL (70-104); SODIUM 141 MMOL/L (135-145); TOTAL CARBON DIOXIDE 34.3 MMOL/L (24-32); TOTAL PROTEIN 7.4 G/DL (6.4-8.2); eGFR 32 ML/MIN
[2017-11-06 07:52] LABS: POTASSIUM 5.3 MMOL/L (3.5-5.1)
[2017-11-06] MEDS: emollient combination-Eucerin 250 ML LOTION TP SCH ×2 (08:00→20:35)
[2017-11-06] MEDS: metoprolol tartrate 50mg tablet PO SCH (08:00)
[2017-11-06] MEDS: docusate sod 100mg capsule PO SCH ×2 (08:00→20:30)
[2017-11-06] MEDS: diltiazem CD 180mg cap (once-daily) PO SCH (08:00)
[2017-11-06] MEDS: furosemide 40mg tablet PO SCH (08:00)
[2017-11-06 08:31] LABS: ABG BASE EXCESS 7.3 mmol/L (-2.0-3.0); ABG PCO2 (T) 88.8 mmHg (35.0-48.0); ABG PH (T) 7.238 (7.350-7.450); ABG PO2 (T) 76.7 mmHg (83-108); FCOHb 1.1 % (0.5-1.5); FMetHb 0.1 % (0.3-1.12); FO2Hb 92.9 % (94-100); MINUTE VOLUME 21 L/min; PEEP 8 cm H2O; RESPIRATORY RATE 24 b/min; RESPIRATORY RATE (OBSERVED) 27 b/min; TIDAL VOLUME 897 mL; TOTAL HEMOGLOBIN 10.4 G/dl (14.0-18.0)
[2017-11-06 11:56] LABS: ABG BASE EXCESS 5.3 mmol/L (-2.0-3.0); ABG HCO3 34.1 mmol/L (22.0-26.0); ABG OXYGEN SATURATION 96.8 % (95-98); ABG PCO2 (T) 78.8 mmHg (35.0-48.0); ABG PH (T) 7.254 (7.350-7.450); ABG PO2 (T) 98.9 mmHg (83-108); FCOHb 1.6 % (0.5-1.5); FMetHb 0.2 % (0.3-1.12); FO2Hb 95.1 % (94-100); MINUTE VOLUME 18 L/min; RESPIRATORY RATE 24 b/min; RESPIRATORY RATE (OBSERVED) 24 b/min; TIDAL VOLUME 725 mL; TOTAL HEMOGLOBIN 9.9 G/dl (14.0-18.0)
[2017-11-06] MEDS ORDERED: furosemide inj 100 ML IV SCH (15:00)
[2017-11-06] MEDS ORDERED: furosemide 40mg/4ml inj IV SCH (20:00)
[2017-11-06] MEDS ORDERED: warfarin 5mg tablet PO ONE (21:00)
[2017-11-07] VITALS (23 sets, daily range): BP systolic 95–135; BP diastolic 63–80
[2017-11-07 05:42] LABS: INR 3.3 INR; PROTHROMBIN TIME 32.8 SECONDS (9.0-12.0)
[2017-11-07] MEDS: HYDROcodone/acetaminophen 10/325mg tab PO PRN ×2 (05:43→19:20)
[2017-11-07 05:47] LABS: ANION GAP 1 (8-16); BLOOD UREA NITROGEN 54 MG/DL (7-18); BUN/CREATININE RATIO 30.9 (5.4-32.0); CHLORIDE 103 MMOL/L (99-107); CREATININE 1.75 MG/DL (0.60-1.10); GLUCOSE 87 MG/DL (70-104); POTASSIUM 4.1 MMOL/L (3.5-5.1); SODIUM 145 MMOL/L (135-145); eGFR 40 ML/MIN
[2017-11-07 05:50] LABS: TOTAL CARBON DIOXIDE 41.1 MMOL/L (24-32)
[2017-11-07 06:07] LABS: BASOPHILS % (AUTO) 0 % (0-1); EOSINOPHILS # (AUTO) 0.1 X10'3 (0-0.9); EOSINOPHILS % (AUTO) 1.4 % (0-6); HEMATOCRIT 29.6 % (42.0-52.0); HEMOGLOBIN 8.8 g/dl (14.0-17.9); LYMPHOCYTES # (AUTO) 0.2 X10'3 (1.1-4.8); LYMPHOCYTES % (AUTO) 2.9 % (21-51); MEAN CORPUSCULAR HEMOGLOBIN 22.8 PG (27.0-31.0); MEAN CORPUSCULAR HGB CONC 29.9 % (33.0-36.5); MEAN CORPUSCULAR VOLUME 76.4 FL (78-98); MEAN PLATELET VOLUME 8.8 FL (7.4-10.4); MONOCYTES % (AUTO) 12.9 % (2-12); NEUTROPHILS # (AUTO) 6.1 X10'3 (1.8-7.7); NEUTROPHILS % (AUTO) 82.8 % (42-75); PLATELET COUNT 160 X10'3 (140-440); RED BLOOD COUNT 3.87 X10'6 (4.70-6.10); RED CELL DISTRIBUTION WIDTH 18.7 % (11.5-14.5); WHITE BLOOD COUNT 7.4 X10'3 (4.5-11.0)
[2017-11-07] MEDS: diltiazem CD 180mg cap (once-daily) PO SCH (07:19)
[2017-11-07] MEDS: docusate sod 100mg capsule PO SCH ×2 (07:19→19:20)
[2017-11-07] MEDS: metoprolol tartrate 50mg tablet PO SCH (07:19)
[2017-11-07] MEDS: emollient combination-Eucerin 250 ML LOTION TP SCH ×2 (07:22→19:21)
[2017-11-07 11:12] LABS: MAGNESIUM 2.7 MG/DL (1.5-2.4); PHOSPHORUS 3.6 MG/DL (2.3-4.5)
[2017-11-07 12:50] LABS: ALANINE AMINOTRANSFERASE 36 U/L (12-78); ALBUMIN/GLOBULIN RATIO 0.9 (1.1-1.5); ALKALINE PHOSPHATASE 61 IU/L (46-116); ANION GAP 2 (8-16); ASPARTATE AMINO TRANSFERASE 37 U/L (10-37); BILIRUBIN,TOTAL 0.7 MG/DL (0.1-1.0); BLOOD UREA NITROGEN 50 MG/DL (7-18); BUN/CREATININE RATIO 29.2 (5.4-32.0); CALCIUM 8.6 MG/DL (8.5-10.1); CHLORIDE 102 MMOL/L (99-107); CREATININE 1.71 MG/DL (0.60-1.10); GLUCOSE 105 MG/DL (70-104); POTASSIUM 3.9 MMOL/L (3.5-5.1); SODIUM 148 MMOL/L (135-145); TOTAL PROTEIN 6.5 G/DL (6.4-8.2); eGFR 41 ML/MIN
[2017-11-07 12:58] LABS: TOTAL CARBON DIOXIDE 44.2 MMOL/L (24-32)
[2017-11-07] MEDS ORDERED: acetaZOLAMIDE IV 500mg inj IV ONE (13:55)
[2017-11-07] MEDS ORDERED: acetaminophen 325mg tablet PO ONE (13:55)
[2017-11-07 19:05] LABS: ALBUMIN 2.9 G/DL (3.4-5.0); ANION GAP 3 (8-16); BLOOD UREA NITROGEN 47 MG/DL (7-18); BUN/CREATININE RATIO 28.5 (5.4-32.0); CALCIUM 8.7 MG/DL (8.5-10.1); CHLORIDE 103 MMOL/L (99-107); CREATININE 1.65 MG/DL (0.60-1.10); GLUCOSE 105 MG/DL (70-104); MAGNESIUM 2.6 MG/DL (1.5-2.4); POTASSIUM 3.6 MMOL/L (3.5-5.1); SODIUM 146 MMOL/L (135-145); eGFR 43 ML/MIN
[2017-11-07 19:07] LABS: TOTAL CARBON DIOXIDE 40.2 MMOL/L (24-32)
[2017-11-07] MEDS: acetaZOLAMIDE IV 500mg inj IV SCH (19:20)
[2017-11-08] VITALS (24 sets, daily range): BP systolic 100–137; BP diastolic 55–90
[2017-11-08 00:06] LABS: ALBUMIN 2.9 G/DL (3.4-5.0); ANION GAP 0 (8-16); BLOOD UREA NITROGEN 46 MG/DL (7-18); BUN/CREATININE RATIO 27.9 (5.4-32.0); CALCIUM 8.6 MG/DL (8.5-10.1); CHLORIDE 104 MMOL/L (99-107); CREATININE 1.65 MG/DL (0.60-1.10); GLUCOSE 105 MG/DL (70-104); MAGNESIUM 2.6 MG/DL (1.5-2.4); PHOSPHORUS 3.3 MG/DL (2.3-4.5); POTASSIUM 3.4 MMOL/L (3.5-5.1); SODIUM 146 MMOL/L (135-145); eGFR 43 ML/MIN
[2017-11-08 00:11] LABS: TOTAL CARBON DIOXIDE 41.8 MMOL/L (24-32)
[2017-11-08] MEDS ORDERED: potassium Cl 40MEQ/NS 500ml 500 ML IV PRN ×2 (01:00)
[2017-11-08] MEDS ORDERED: potassium Cl 20 mEq SR tablet PO PRN (01:00)
[2017-11-08] MEDS ORDERED: potassium Cl 40MEQ/NS 500ml 500 ML IV ONE (01:00)
[2017-11-08] MEDS: HYDROcodone/acetaminophen 10/325mg tab PO PRN (03:43)
[2017-11-08 05:58] LABS: BASOPHILS % (AUTO) 0 % (0-1); EOSINOPHILS # (AUTO) 0.1 X10'3 (0-0.9); EOSINOPHILS % (AUTO) 1.6 % (0-6); HEMATOCRIT 30.6 % (42.0-52.0); HEMOGLOBIN 9.1 g/dl (14.0-17.9); LYMPHOCYTES # (AUTO) 0.4 X10'3 (1.1-4.8); MEAN CORPUSCULAR HEMOGLOBIN 22.9 PG (27.0-31.0); MEAN CORPUSCULAR HGB CONC 29.9 % (33.0-36.5); MEAN CORPUSCULAR VOLUME 76.5 FL (78-98); MEAN PLATELET VOLUME 8.4 FL (7.4-10.4); MONOCYTES # (AUTO) 1.1 X10'3 (0-0.9); MONOCYTES % (AUTO) 12.4 % (2-12); NEUTROPHILS # (AUTO) 7.2 X10'3 (1.8-7.7); PLATELET COUNT 176 X10'3 (140-440); RED CELL DISTRIBUTION WIDTH 19.3 % (11.5-14.5); WHITE BLOOD COUNT 8.8 X10'3 (4.5-11.0)
[2017-11-08 06:07] LABS: PROTHROMBIN TIME 29.9 SECONDS (9.0-12.0)
[2017-11-08 06:08] LABS: ANION GAP -1 (8-16); BLOOD UREA NITROGEN 43 MG/DL (7-18); BUN/CREATININE RATIO 25.7 (5.4-32.0); CALCIUM 8.4 MG/DL (8.5-10.1); CHLORIDE 103 MMOL/L (99-107); CREATININE 1.67 MG/DL (0.60-1.10); GLUCOSE 94 MG/DL (70-104); MAGNESIUM 2.6 MG/DL (1.5-2.4); PHOSPHORUS 3.2 MG/DL (2.3-4.5); POTASSIUM 3.6 MMOL/L (3.5-5.1); SODIUM 144 MMOL/L (135-145); eGFR 43 ML/MIN
[2017-11-08] MEDS: diltiazem CD 180mg cap (once-daily) PO SCH (07:43)
[2017-11-08] MEDS: docusate sod 100mg capsule PO SCH ×2 (07:44→20:00)
[2017-11-08] MEDS: acetaZOLAMIDE IV 500mg inj IV SCH ×2 (07:44→19:29)
[2017-11-08] MEDS: metoprolol tartrate 50mg tablet PO SCH (07:44)
[2017-11-08] MEDS: K and/or MAG REPLACEMENT MC SCH (08:05)
[2017-11-08] MEDS: emollient combination-Eucerin 250 ML LOTION TP SCH ×2 (08:06→19:30)
[2017-11-08] MEDS: FUROSEMIDE IV SCH (08:13)
[2017-11-08] MEDS: pantoprazole 40 MG vial IV SCH (15:49)
[2017-11-08] MEDS ORDERED: phytonadione inj. 10 MG in normal saline 100ml IV soln 99 ML IV ONE (16:15)
[2017-11-08 18:59] LABS: ALBUMIN 3.2 G/DL (3.4-5.0); ANION GAP 1 (8-16); BLOOD UREA NITROGEN 38 MG/DL (7-18); BUN/CREATININE RATIO 24.2 (5.4-32.0); CALCIUM 8.7 MG/DL (8.5-10.1); CHLORIDE 101 MMOL/L (99-107); CREATININE 1.57 MG/DL (0.60-1.10); GLUCOSE 107 MG/DL (70-104); MAGNESIUM 2.7 MG/DL (1.5-2.4); PHOSPHORUS 3.7 MG/DL (2.3-4.5); POTASSIUM 3.5 MMOL/L (3.5-5.1); SODIUM 143 MMOL/L (135-145); eGFR 46 ML/MIN
[2017-11-08 19:08] LABS: TOTAL CARBON DIOXIDE 41.1 MMOL/L (24-32)
[2017-11-09] VITALS (25 sets, daily range): BP systolic 94–140; BP diastolic 56–85
[2017-11-09] LABS: ALBUMIN 3.3 G/DL (3.4-5.0); ANION GAP -1 (8-16); BLOOD UREA NITROGEN 38 MG/DL (7-18); BUN/CREATININE RATIO 22.5 (5.4-32.0); CALCIUM 8.8 MG/DL (8.5-10.1); CHLORIDE 103 MMOL/L (99-107); CREATININE 1.69 MG/DL (0.60-1.10); GLUCOSE 110 MG/DL (70-104); MAGNESIUM 2.6 MG/DL (1.5-2.4); PHOSPHORUS 4.9 MG/DL (2.3-4.5); POTASSIUM 3.8 MMOL/L (3.5-5.1); SODIUM 144 MMOL/L (135-145); eGFR 42 ML/MIN
[2017-11-09 06:26] LABS: BASOPHILS % (AUTO) 0.1 % (0-1); EOSINOPHILS # (AUTO) 0.2 X10'3 (0-0.9); EOSINOPHILS % (AUTO) 1.4 % (0-6); HEMATOCRIT 33.1 % (42.0-52.0); HEMOGLOBIN 9.6 g/dl (14.0-17.9); LYMPHOCYTES # (AUTO) 0.3 X10'3 (1.1-4.8); LYMPHOCYTES % (AUTO) 2.5 % (21-51); MEAN CORPUSCULAR HEMOGLOBIN 22.8 PG (27.0-31.0); MEAN CORPUSCULAR HGB CONC 29.1 % (33.0-36.5); MEAN CORPUSCULAR VOLUME 78.4 FL (78-98); MEAN PLATELET VOLUME 8.4 FL (7.4-10.4); MONOCYTES # (AUTO) 1.3 X10'3 (0-0.9); MONOCYTES % (AUTO) 10.5 % (2-12); NEUTROPHILS # (AUTO) 10.6 X10'3 (1.8-7.7); NEUTROPHILS % (AUTO) 85.5 % (42-75); PLATELET COUNT 192 X10'3 (140-440); RED BLOOD COUNT 4.22 X10'6 (4.70-6.10); WHITE BLOOD COUNT 12.4 X10'3 (4.5-11.0)
[2017-11-09 06:35] LABS: INR 1.5 INR; PROTHROMBIN TIME 15.5 SECONDS (9.0-12.0)
[2017-11-09 06:44] LABS: ALBUMIN 3.3 G/DL (3.4-5.0); ANION GAP 2 (8-16); BLOOD UREA NITROGEN 41 MG/DL (7-18); BUN/CREATININE RATIO 24.1 (5.4-32.0); CALCIUM 8.6 MG/DL (8.5-10.1); CHLORIDE 102 MMOL/L (99-107); GLUCOSE 112 MG/DL (70-104); MAGNESIUM 2.7 MG/DL (1.5-2.4); PHOSPHORUS 5.1 MG/DL (2.3-4.5); POTASSIUM 4.1 MMOL/L (3.5-5.1); SODIUM 144 MMOL/L (135-145); TOTAL CARBON DIOXIDE 39.6 MMOL/L (24-32); eGFR 42 ML/MIN
[2017-11-09] MEDS: pantoprazole 40 MG vial IV SCH (07:19)
[2017-11-09] MEDS: diltiazem CD 180mg cap (once-daily) PO SCH (07:20)
[2017-11-09] MEDS: HYDROcodone/acetaminophen 10/325mg tab PO PRN (07:20)
[2017-11-09] MEDS: metoprolol tartrate 50mg tablet PO SCH (07:20)
[2017-11-09] MEDS: docusate sod 100mg capsule PO SCH ×2 (07:21→20:00)
[2017-11-09] MEDS: acetaZOLAMIDE IV 500mg inj IV SCH ×2 (07:23→20:00)
[2017-11-09] MEDS: emollient combination-Eucerin 250 ML LOTION TP SCH ×2 (08:30→20:00)
[2017-11-09] MEDS: K and/or MAG REPLACEMENT MC SCH (08:31)
[2017-11-09] MEDS: FUROSEMIDE IV SCH (08:31)
[2017-11-09 08:46] LABS: ABG BASE EXCESS 7.3 mmol/L (-2.0-3.0); ABG HCO3 37.9 mmol/L (22.0-26.0); ABG OXYGEN SATURATION 95.9 % (95-98); ABG PCO2 (T) 97.5 mmHg (35.0-48.0); ABG PH (T) 7.207 (7.350-7.450); ABG PO2 (T) 87.6 mmHg (83-108); FCOHb 2.1 % (0.5-1.5); FMetHb 0.1 % (0.3-1.12); FO2Hb 93.8 % (94-100); PEEP 5 cm H2O; TIDAL VOLUME 433 mL; TOTAL HEMOGLOBIN 10.7 G/dl (14.0-18.0)
[2017-11-09 10:57] LABS: ALLEN'S TEST Positive
[2017-11-09 11:06] LABS: ABG BASE EXCESS 8.4 mmol/L (-2.0-3.0); ABG HCO3 39.1 mmol/L (22.0-26.0); ABG OXYGEN SATURATION 93.7 % (95-98); ABG PCO2 (T) 100.6 mmHg (35.0-48.0); ABG PH (T) 7.207 (7.350-7.450); ABG PO2 (T) 75.7 mmHg (83-108); ALLEN'S TEST Positive; FCOHb 1.7 % (0.5-1.5); FMetHb 0.2 % (0.3-1.12); FO2Hb 91.9 % (94-100); TOTAL HEMOGLOBIN 10.6 G/dl (14.0-18.0)
[2017-11-09] MEDS ORDERED: MIDAZolam 5mg/ml 2ml vial ONE (11:10)
[2017-11-09] MEDS: FENTANYL-0.9 % NACL/PF 100 ML IV PRN ×2 (11:50→15:53)
[2017-11-09] MEDS: midazolam 100mg in NS 100ml 100 ML IV PRN (12:28)
[2017-11-09 13:16] LABS: ABG BASE EXCESS 14.1 mmol/L (-2.0-3.0); ABG HCO3 42.6 mmol/L (22.0-26.0); ABG OXYGEN SATURATION 95.1 % (95-98); ABG PCO2 (T) 81.3 mmHg (35.0-48.0); ABG PH (T) 7.337 (7.350-7.450); ABG PO2 (T) 72.4 mmHg (83-108); ALLEN'S TEST Positive; FCOHb 1.7 % (0.5-1.5); FMetHb 0.2 % (0.3-1.12); FO2Hb 93.3 % (94-100); PEEP 8 cm H2O; RESPIRATORY RATE 18 b/min; TIDAL VOLUME 450 mL; TOTAL HEMOGLOBIN 9.9 G/dl (14.0-18.0)
[2017-11-09] MEDS ORDERED: LIDOcaine 1%/PF (10mg/ml) 5ml vial ONE ×2 (14:41→14:42)
[2017-11-09 16:18] LABS: ALBUMIN,BODY FLUID 1.2 G/DL
[2017-11-09] MEDS: enoxaparin 80mg/0.8ml syringe SUBCUT SCH (20:00)
[2017-11-09] MEDS ORDERED: enoxaparin 80mg/0.8ml syringe SUBCUT SCH (20:00)
[2017-11-09 22:50] LABS: ALBUMIN 2.8 G/DL (3.4-5.0); ANION GAP 2 (8-16); BLOOD UREA NITROGEN 41 MG/DL (7-18); BUN/CREATININE RATIO 22.8 (5.4-32.0); CALCIUM 8.5 MG/DL (8.5-10.1); CHLORIDE 103 MMOL/L (99-107); GLUCOSE 80 MG/DL (70-104); POTASSIUM 3.7 MMOL/L (3.5-5.1); SODIUM 144 MMOL/L (135-145); eGFR 39 ML/MIN
[2017-11-10] VITALS (30 sets, daily range): BP systolic 84–110; BP diastolic 50–74
[2017-11-10 03:41] LABS: ABG BASE EXCESS 11.7 mmol/L (-2.0-3.0); ABG HCO3 38.1 mmol/L (22.0-26.0); ABG OXYGEN SATURATION 88.1 % (95-98); ABG PCO2 (T) 59.3 mmHg (35.0-48.0); ABG PH (T) 7.423 (7.350-7.450); ABG PO2 (T) 52.7 mmHg (83-108); ALLEN'S TEST Positive; FCOHb 0.9 % (0.5-1.5); FMetHb 0.1 % (0.3-1.12); FO2Hb 87.2 % (94-100); PATIENT TEMPERATURE 36.4; PEEP 8 cm H2O; RESPIRATORY RATE 20 b/min; TIDAL VOLUME 450 mL; TOTAL HEMOGLOBIN 9.7 G/dl (14.0-18.0)
[2017-11-10 05:45] LABS: ALBUMIN 2.7 G/DL (3.4-5.0); ANION GAP 3 (8-16); BLOOD UREA NITROGEN 39 MG/DL (7-18); BUN/CREATININE RATIO 21.8 (5.4-32.0); CALCIUM 8.7 MG/DL (8.5-10.1); CHLORIDE 105 MMOL/L (99-107); CREATININE 1.79 MG/DL (0.60-1.10); GLUCOSE 77 MG/DL (70-104); MAGNESIUM 2.7 MG/DL (1.5-2.4); POTASSIUM 3.4 MMOL/L (3.5-5.1); SODIUM 147 MMOL/L (135-145); TOTAL CARBON DIOXIDE 39.5 MMOL/L (24-32); eGFR 39 ML/MIN
[2017-11-10 07:53] LABS: BASOPHILS % (AUTO) 0.1 % (0-1); EOSINOPHILS # (AUTO) 0.3 X10'3 (0-0.9); EOSINOPHILS % (AUTO) 2.4 % (0-6); HEMOGLOBIN 8.2 g/dl (14.0-17.9); LYMPHOCYTES # (AUTO) 0.3 X10'3 (1.1-4.8); LYMPHOCYTES % (AUTO) 2.6 % (21-51); MEAN CORPUSCULAR HEMOGLOBIN 23.2 PG (27.0-31.0); MEAN CORPUSCULAR HGB CONC 30.5 % (33.0-36.5); MEAN CORPUSCULAR VOLUME 76.1 FL (78-98); MEAN PLATELET VOLUME 9.1 FL (7.4-10.4); MONOCYTES # (AUTO) 0.9 X10'3 (0-0.9); NEUTROPHILS # (AUTO) 9.5 X10'3 (1.8-7.7); NEUTROPHILS % (AUTO) 86.9 % (42-75); PLATELET COUNT 154 X10'3 (140-440); RED BLOOD COUNT 3.55 X10'6 (4.70-6.10); RED CELL DISTRIBUTION WIDTH 19.4 % (11.5-14.5); WHITE BLOOD COUNT 10.9 X10'3 (4.5-11.0)
[2017-11-10] MEDS: metoprolol tartrate 50mg tablet PO SCH (08:00)
[2017-11-10] MEDS: diltiazem CD 180mg cap (once-daily) PO SCH (08:00)
[2017-11-10] MEDS: K and/or MAG REPLACEMENT MC SCH (08:00)
[2017-11-10] MEDS: FUROSEMIDE IV SCH (08:00)
[2017-11-10] MEDS: docusate sod 100mg capsule PO SCH ×2 (08:00→20:00)
[2017-11-10] MEDS: pantoprazole 40 MG vial IV SCH (08:22)
[2017-11-10] MEDS: enoxaparin 80mg/0.8ml syringe SUBCUT SCH ×2 (08:23→20:39)
[2017-11-10] MEDS: acetaZOLAMIDE IV 500mg inj IV SCH ×2 (08:23→20:39)
[2017-11-10] MEDS: emollient combination-Eucerin 250 ML LOTION TP SCH ×2 (08:36→20:40)
[2017-11-10 10:43] LABS: ALBUMIN 2.6 G/DL (3.4-5.0); ANION GAP 3 (8-16); BLOOD UREA NITROGEN 38 MG/DL (7-18); CALCIUM 8.1 MG/DL (8.5-10.1); CHLORIDE 105 MMOL/L (99-107); CREATININE 1.73 MG/DL (0.60-1.10); GLUCOSE 81 MG/DL (70-104); MAGNESIUM 2.7 MG/DL (1.5-2.4); PHOSPHORUS 2.3 MG/DL (2.3-4.5); POTASSIUM 3.2 MMOL/L (3.5-5.1); SODIUM 145 MMOL/L (135-145); eGFR 41 ML/MIN
[2017-11-10] MEDS: potassium Cl 20 mEq SR tablet PO PRN ×3 (11:40→22:06)
[2017-11-10] MEDS: FENTANYL-0.9 % NACL/PF 100 ML IV PRN (14:30)
[2017-11-10 16:13] LABS: ALBUMIN 2.5 G/DL (3.4-5.0); ANION GAP 2 (8-16); BLOOD UREA NITROGEN 37 MG/DL (7-18); BUN/CREATININE RATIO 21.9 (5.4-32.0); CALCIUM 8.3 MG/DL (8.5-10.1); CHLORIDE 107 MMOL/L (99-107); CREATININE 1.69 MG/DL (0.60-1.10); GLUCOSE 79 MG/DL (70-104); MAGNESIUM 2.8 MG/DL (1.5-2.4); PHOSPHORUS 2.8 MG/DL (2.3-4.5); POTASSIUM 3.3 MMOL/L (3.5-5.1); SODIUM 146 MMOL/L (135-145); TOTAL CARBON DIOXIDE 37.4 MMOL/L (24-32); eGFR 42 ML/MIN
[2017-11-10] MEDS: midazolam 100mg in NS 100ml 100 ML IV PRN (16:14)
[2017-11-10 23:10] LABS: ALBUMIN 2.5 G/DL (3.4-5.0); ANION GAP 4 (8-16); BLOOD UREA NITROGEN 36 MG/DL (7-18); BUN/CREATININE RATIO 20.7 (5.4-32.0); CALCIUM 8.2 MG/DL (8.5-10.1); CHLORIDE 106 MMOL/L (99-107); CREATININE 1.74 MG/DL (0.60-1.10); GLUCOSE 73 MG/DL (70-104); MAGNESIUM 2.7 MG/DL (1.5-2.4); PHOSPHORUS 2.5 MG/DL (2.3-4.5); POTASSIUM 3.3 MMOL/L (3.5-5.1); SODIUM 147 MMOL/L (135-145); eGFR 41 ML/MIN
[2017-11-11] VITALS (24 sets, daily range): BP systolic 86–123; BP diastolic 56–81
[2017-11-11] MEDS ORDERED: potassium Cl oral solution 20 MEQ/15 ML PO PRN (02:20)
[2017-11-11] MEDS ORDERED: potassium Cl 40MEQ/NS 500ml 500 ML IV PRN ×2 (02:20)
[2017-11-11] MEDS: potassium Cl oral solution 20 MEQ/15 ML PO PRN ×3 (02:52→16:27)
[2017-11-11 03:00] LABS: ABG BASE EXCESS 10.1 mmol/L (-2.0-3.0); ABG HCO3 36.1 mmol/L (22.0-26.0); ABG OXYGEN SATURATION 97.5 % (95-98); ABG PCO2 (T) 56.3 mmHg (35.0-48.0); ABG PH (T) 7.424 (7.350-7.450); ABG PO2 (T) 97.8 mmHg (83-108); ALLEN'S TEST Positive; FCOHb 0.6 % (0.5-1.5); FMetHb 0.1 % (0.3-1.12); FO2Hb 96.8 % (94-100); MINUTE VOLUME 9 L/min; PATIENT TEMPERATURE 36.8; PEEP 8 cm H2O; RESPIRATORY RATE 20 b/min; RESPIRATORY RATE (OBSERVED) 20 b/min; TIDAL VOLUME 450 mL; TOTAL HEMOGLOBIN 9.9 G/dl (14.0-18.0)
[2017-11-11 04:56] LABS: BASOPHILS % (AUTO) 0.2 % (0-1); EOSINOPHILS # (AUTO) 0.2 X10'3 (0-0.9); HEMATOCRIT 28.6 % (42.0-52.0); HEMOGLOBIN 8.6 g/dl (14.0-17.9); LYMPHOCYTES # (AUTO) 0.4 X10'3 (1.1-4.8); LYMPHOCYTES % (AUTO) 3.7 % (21-51); MEAN CORPUSCULAR HEMOGLOBIN 23.2 PG (27.0-31.0); MEAN CORPUSCULAR HGB CONC 30.3 % (33.0-36.5); MEAN CORPUSCULAR VOLUME 76.6 FL (78-98); MEAN PLATELET VOLUME 8.9 FL (7.4-10.4); MONOCYTES # (AUTO) 1.2 X10'3 (0-0.9); MONOCYTES % (AUTO) 10.6 % (2-12); NEUTROPHILS # (AUTO) 9.8 X10'3 (1.8-7.7); NEUTROPHILS % (AUTO) 83.5 % (42-75); PLATELET COUNT 162 X10'3 (140-440); RED BLOOD COUNT 3.73 X10'6 (4.70-6.10); RED CELL DISTRIBUTION WIDTH 19.6 % (11.5-14.5); WHITE BLOOD COUNT 11.7 X10'3 (4.5-11.0)
[2017-11-11 05:06] LABS: ALBUMIN 2.4 G/DL (3.4-5.0); ANION GAP 3 (8-16); BLOOD UREA NITROGEN 33 MG/DL (7-18); BUN/CREATININE RATIO 19.9 (5.4-32.0); CALCIUM 8.3 MG/DL (8.5-10.1); CHLORIDE 107 MMOL/L (99-107); CREATININE 1.66 MG/DL (0.60-1.10); GLUCOSE 73 MG/DL (70-104); MAGNESIUM 2.5 MG/DL (1.5-2.4); PHOSPHORUS 2.2 MG/DL (2.3-4.5); POTASSIUM 3.1 MMOL/L (3.5-5.1); SODIUM 148 MMOL/L (135-145); TOTAL CARBON DIOXIDE 37.9 MMOL/L (24-32); eGFR 43 ML/MIN
[2017-11-11] MEDS: FUROSEMIDE IV SCH (07:24)
[2017-11-11] MEDS: docusate sod 100mg capsule PO SCH (07:25)
[2017-11-11] MEDS: pantoprazole 40 MG vial IV SCH (07:36)
[2017-11-11] MEDS: docusate sodium 100mg/10ml UD cup PO SCH ×2 (07:37→20:48)
[2017-11-11] MEDS: acetaZOLAMIDE IV 500mg inj IV SCH ×2 (07:37→20:48)
[2017-11-11] MEDS: enoxaparin 80mg/0.8ml syringe SUBCUT SCH ×2 (07:38→20:49)
[2017-11-11] MEDS: emollient combination-Eucerin 250 ML LOTION TP SCH ×2 (07:38→20:49)
[2017-11-11 11:00] LABS: INR 1.2 INR; PROTHROMBIN TIME 12.1 SECONDS (9.0-12.0)
[2017-11-11] MEDS: midazolam 100mg in NS 100ml 100 ML IV PRN (11:00)
[2017-11-11 11:05] LABS: ALBUMIN 2.6 G/DL (3.4-5.0); ANION GAP 7 (8-16); BLOOD UREA NITROGEN 31 MG/DL (7-18); BUN/CREATININE RATIO 18.8 (5.4-32.0); CALCIUM 8.3 MG/DL (8.5-10.1); CHLORIDE 108 MMOL/L (99-107); CREATININE 1.65 MG/DL (0.60-1.10); GLUCOSE 75 MG/DL (70-104); MAGNESIUM 2.8 MG/DL (1.5-2.4); PHOSPHORUS 2.3 MG/DL (2.3-4.5); POTASSIUM 3.3 MMOL/L (3.5-5.1); SODIUM 149 MMOL/L (135-145); TOTAL CARBON DIOXIDE 33.9 MMOL/L (24-32); eGFR 43 ML/MIN
[2017-11-11] MEDS: FENTANYL-0.9 % NACL/PF 100 ML IV PRN ×2 (11:29→19:44)
[2017-11-11] MEDS: dextrose 5%-water 1,000 ML IV SCH (12:22)
[2017-11-11 17:11] LABS: ALBUMIN 2.3 G/DL (3.4-5.0); ANION GAP 6 (8-16); BLOOD UREA NITROGEN 26 MG/DL (7-18); BUN/CREATININE RATIO 18.3 (5.4-32.0); CALCIUM 7.8 MG/DL (8.5-10.1); CHLORIDE 102 MMOL/L (99-107); CREATININE 1.42 MG/DL (0.60-1.10); GLUCOSE 365 MG/DL (70-104); MAGNESIUM 2.3 MG/DL (1.5-2.4); SODIUM 141 MMOL/L (135-145); TOTAL CARBON DIOXIDE 33.1 MMOL/L (24-32); eGFR 51 ML/MIN
[2017-11-11 17:13] LABS: POTASSIUM 2.9 MMOL/L (3.5-5.1)
[2017-11-11 22:57] LABS: ALBUMIN 2.4 G/DL (3.4-5.0); ANION GAP 6 (8-16); BLOOD UREA NITROGEN 26 MG/DL (7-18); BUN/CREATININE RATIO 17.8 (5.4-32.0); CALCIUM 8.3 MG/DL (8.5-10.1); CHLORIDE 111 MMOL/L (99-107); CREATININE 1.46 MG/DL (0.60-1.10); GLUCOSE 95 MG/DL (70-104); MAGNESIUM 2.5 MG/DL (1.5-2.4); PHOSPHORUS 2.1 MG/DL (2.3-4.5); POTASSIUM 3.4 MMOL/L (3.5-5.1); SODIUM 152 MMOL/L (135-145); eGFR 50 ML/MIN
[2017-11-11] MEDS ORDERED: potassium Cl 40MEQ/250ML bag 250 ML IV PRN (23:45)
[2017-11-12] VITALS (26 sets, daily range): BP systolic 64–137; BP diastolic 56–77
[2017-11-12] MEDS ORDERED: potassium Cl 20mEq/100mL bag 0 ML IV ONE (00:03)
[2017-11-12] MEDS ORDERED: potassium Cl 40MEQ/250ML bag 250 ML IV ONE (00:16)
[2017-11-12] MEDS: midazolam 100mg in NS 100ml 100 ML IV PRN ×2 (00:49→17:39)
[2017-11-12] MEDS: FENTANYL-0.9 % NACL/PF 100 ML IV PRN ×2 (02:30→14:29)
[2017-11-12 04:11] LABS: ABG BASE EXCESS 6.1 mmol/L (-2.0-3.0); ABG HCO3 31.9 mmol/L (22.0-26.0); ABG OXYGEN SATURATION 97.8 % (95-98); ABG PCO2 (T) 52.8 mmHg (35.0-48.0); ABG PH (T) 7.399 (7.350-7.450); ABG PO2 (T) 105.6 mmHg (83-108); ALLEN'S TEST Positive; FCOHb 0.7 % (0.5-1.5); FMetHb 0.2 % (0.3-1.12); FO2Hb 96.9 % (94-100); MINUTE VOLUME 9 L/min; PEEP 8 cm H2O; RESPIRATORY RATE 20 b/min; RESPIRATORY RATE (OBSERVED) 20 b/min; TIDAL VOLUME 450 mL
[2017-11-12 04:29] LABS: BASOPHILS % (AUTO) 0 % (0-1); EOSINOPHILS # (AUTO) 0.2 X10'3 (0-0.9); EOSINOPHILS % (AUTO) 2.7 % (0-6); HEMATOCRIT 28.1 % (42.0-52.0); HEMOGLOBIN 8.4 g/dl (14.0-17.9); LYMPHOCYTES # (AUTO) 0.4 X10'3 (1.1-4.8); LYMPHOCYTES % (AUTO) 4.1 % (21-51); MEAN CORPUSCULAR HEMOGLOBIN 22.8 PG (27.0-31.0); MEAN CORPUSCULAR HGB CONC 29.8 % (33.0-36.5); MEAN CORPUSCULAR VOLUME 76.6 FL (78-98); MEAN PLATELET VOLUME 8.4 FL (7.4-10.4); MONOCYTES # (AUTO) 0.7 X10'3 (0-0.9); MONOCYTES % (AUTO) 8.6 % (2-12); NEUTROPHILS # (AUTO) 7.3 X10'3 (1.8-7.7); NEUTROPHILS % (AUTO) 84.6 % (42-75); PLATELET COUNT 155 X10'3 (140-440); RED BLOOD COUNT 3.67 X10'6 (4.70-6.10); RED CELL DISTRIBUTION WIDTH 19.6 % (11.5-14.5); WHITE BLOOD COUNT 8.6 X10'3 (4.5-11.0)
[2017-11-12 04:42] LABS: ALANINE AMINOTRANSFERASE 20 U/L (12-78); ALBUMIN 2.2 G/DL (3.4-5.0); ALBUMIN/GLOBULIN RATIO 0.6 (1.1-1.5); ALKALINE PHOSPHATASE 55 IU/L (46-116); ANION GAP 2 (8-16); ASPARTATE AMINO TRANSFERASE 24 U/L (10-37); BILIRUBIN,TOTAL 1.1 MG/DL (0.1-1.0); BLOOD UREA NITROGEN 23 MG/DL (7-18); BUN/CREATININE RATIO 15.8 (5.4-32.0); CHLORIDE 108 MMOL/L (99-107); CREATININE 1.46 MG/DL (0.60-1.10); GLUCOSE 243 MG/DL (70-104); POTASSIUM 3.3 MMOL/L (3.5-5.1); SODIUM 143 MMOL/L (135-145); TOTAL CARBON DIOXIDE 32.9 MMOL/L (24-32); TOTAL PROTEIN 5.6 G/DL (6.4-8.2); eGFR 50 ML/MIN
[2017-11-12 07:31] LABS: MAGNESIUM 2.4 MG/DL (1.5-2.4)
[2017-11-12] MEDS: enoxaparin 80mg/0.8ml syringe SUBCUT SCH ×2 (08:00→21:02)
[2017-11-12] MEDS: FUROSEMIDE IV SCH (08:00)
[2017-11-12] MEDS: pantoprazole 40 MG vial IV SCH (08:02)
[2017-11-12] MEDS: potassium Cl oral solution 20 MEQ/15 ML PO PRN ×2 (08:02→14:29)
[2017-11-12] MEDS: docusate sodium 100mg/10ml UD cup PO SCH ×2 (08:02→21:04)
[2017-11-12] MEDS: acetaZOLAMIDE IV 500mg inj IV SCH ×2 (08:03→20:00)
[2017-11-12] MEDS: emollient combination-Eucerin 250 ML LOTION TP SCH ×2 (08:13→20:00)
[2017-11-12] MEDS: dextrose 5%-water 1,000 ML IV SCH (08:32)
[2017-11-12] MEDS ORDERED: LIDOcaine 0.5% (5mg/ml) 50ml vial ONE (10:00)
[2017-11-12 10:25] LABS: ALBUMIN 2.4 G/DL (3.4-5.0); ANION GAP 3 (8-16); BLOOD UREA NITROGEN 23 MG/DL (7-18); BUN/CREATININE RATIO 15.3 (5.4-32.0); CALCIUM 8.1 MG/DL (8.5-10.1); CHLORIDE 112 MMOL/L (99-107); GLUCOSE 106 MG/DL (70-104); MAGNESIUM 2.6 MG/DL (1.5-2.4); PHOSPHORUS 2.3 MG/DL (2.3-4.5); POTASSIUM 3.4 MMOL/L (3.5-5.1); SODIUM 148 MMOL/L (135-145); TOTAL CARBON DIOXIDE 32.6 MMOL/L (24-32); eGFR 48 ML/MIN
[2017-11-12] MEDS: piperacillin/tazo 3.375gm/50ml 50 ML IV SCH ×2 (14:23→21:05)
[2017-11-12 18:12] LABS: ALBUMIN 2.5 G/DL (3.4-5.0); ANION GAP 3 (8-16); BLOOD UREA NITROGEN 22 MG/DL (7-18); BUN/CREATININE RATIO 14.4 (5.4-32.0); CALCIUM 8.6 MG/DL (8.5-10.1); CHLORIDE 113 MMOL/L (99-107); CREATININE 1.53 MG/DL (0.60-1.10); GLUCOSE 114 MG/DL (70-104); MAGNESIUM 2.6 MG/DL (1.5-2.4); PHOSPHORUS 2.5 MG/DL (2.3-4.5); POTASSIUM 3.6 MMOL/L (3.5-5.1); SODIUM 150 MMOL/L (135-145); TOTAL CARBON DIOXIDE 34.4 MMOL/L (24-32); eGFR 47 ML/MIN
[2017-11-12] MEDS ORDERED: albumin (human) 25% 100 ML IV solution IV ONE (18:50)
[2017-11-12] MEDS ORDERED: CefTRIAXone/D5W-Rocephin 1gm 50 ML IV SCH (20:00)
[2017-11-12] MEDS: furosemide 40mg/4ml inj IV SCH (20:56)
[2017-11-13] VITALS (20 sets, daily range): BP systolic 91–125; BP diastolic 57–88
[2017-11-13] MEDS: FENTANYL-0.9 % NACL/PF 100 ML IV PRN ×2 (03:00→13:47)
[2017-11-13 03:03] LABS: BASOPHILS % (AUTO) 0.1 % (0-1); EOSINOPHILS # (AUTO) 0.1 X10'3 (0-0.9); EOSINOPHILS % (AUTO) 1.1 % (0-6); HEMATOCRIT 29.1 % (42.0-52.0); HEMOGLOBIN 8.8 g/dl (14.0-17.9); LYMPHOCYTES # (AUTO) 0.4 X10'3 (1.1-4.8); LYMPHOCYTES % (AUTO) 2.9 % (21-51); MEAN CORPUSCULAR HEMOGLOBIN 23.3 PG (27.0-31.0); MEAN CORPUSCULAR HGB CONC 30.3 % (33.0-36.5); MEAN CORPUSCULAR VOLUME 76.8 FL (78-98); MEAN PLATELET VOLUME 9.1 FL (7.4-10.4); MONOCYTES # (AUTO) 1.1 X10'3 (0-0.9); MONOCYTES % (AUTO) 9.1 % (2-12); NEUTROPHILS # (AUTO) 10.6 X10'3 (1.8-7.7); NEUTROPHILS % (AUTO) 86.8 % (42-75); PLATELET COUNT 147 X10'3 (140-440); RED BLOOD COUNT 3.79 X10'6 (4.70-6.10); RED CELL DISTRIBUTION WIDTH 19.4 % (11.5-14.5); WHITE BLOOD COUNT 12.2 X10'3 (4.5-11.0)
[2017-11-13 03:13] LABS: ALBUMIN 2.6 G/DL (3.4-5.0); ANION GAP 4 (8-16); BLOOD UREA NITROGEN 22 MG/DL (7-18); BUN/CREATININE RATIO 14.7 (5.4-32.0); CALCIUM 8.4 MG/DL (8.5-10.1); CHLORIDE 112 MMOL/L (99-107); GLUCOSE 125 MG/DL (70-104); MAGNESIUM 2.5 MG/DL (1.5-2.4); POTASSIUM 3.3 MMOL/L (3.5-5.1); SODIUM 147 MMOL/L (135-145); TOTAL CARBON DIOXIDE 31.5 MMOL/L (24-32); eGFR 48 ML/MIN
[2017-11-13] MEDS: piperacillin/tazo 3.375gm/50ml 50 ML IV SCH ×4 (03:26→20:29)
[2017-11-13 03:56] LABS: ABG BASE EXCESS 5.9 mmol/L (-2.0-3.0); ABG HCO3 31.7 mmol/L (22.0-26.0); ABG PCO2 (T) 52.5 mmHg (35.0-48.0); ABG PH (T) 7.399 (7.350-7.450); ABG PO2 (T) 94.2 mmHg (83-108); ALLEN'S TEST Positive; FCOHb 0.7 % (0.5-1.5); FMetHb 0.1 % (0.3-1.12); FO2Hb 96.2 % (94-100); MINUTE VOLUME 9 L/min; PEEP 8 cm H2O; RESPIRATORY RATE 20 b/min; RESPIRATORY RATE (OBSERVED) 20 b/min; TIDAL VOLUME 450 mL; TOTAL HEMOGLOBIN 9.9 G/dl (14.0-18.0)
[2017-11-13] MEDS: dextrose 5%-water 1,000 ML IV SCH (06:16)
[2017-11-13 06:59] LABS: ANISOCYTOSIS 2+; MICROCYTOSIS 1+; PLATELET ESTIMATE NORMAL
[2017-11-13 07:00] LABS: POIKILOCYTOSIS FEW; POLYCHROMASIA FEW
[2017-11-13] MEDS: enoxaparin 80mg/0.8ml syringe SUBCUT SCH ×2 (07:42→20:30)
[2017-11-13] MEDS: acetaZOLAMIDE IV 500mg inj IV SCH ×2 (07:43→20:31)
[2017-11-13] MEDS: pantoprazole 40 MG vial IV SCH (07:44)
[2017-11-13] MEDS: docusate sodium 100mg/10ml UD cup PO SCH ×2 (07:46→20:29)
[2017-11-13] MEDS: emollient combination-Eucerin 250 ML LOTION TP SCH ×2 (07:46→20:31)
[2017-11-13] MEDS: furosemide 40mg/4ml inj IV SCH ×2 (07:46→20:30)
[2017-11-13] MEDS: potassium Cl oral solution 20 MEQ/15 ML PO PRN ×3 (07:56→17:58)
[2017-11-13] MEDS: lactobacillus rhamnosus 10,000 MMU CELLS/CAPSULE PO SCH (20:29)
[2017-11-14] VITALS (22 sets, daily range): BP systolic 86–138; BP diastolic 59–88
[2017-11-14] MEDS: piperacillin/tazo 3.375gm/50ml 50 ML IV SCH ×4 (01:57→19:13)
[2017-11-14 03:26] LABS: BASOPHILS % (AUTO) 0 % (0-1); EOSINOPHILS # (AUTO) 0.2 X10'3 (0-0.9); EOSINOPHILS % (AUTO) 2.4 % (0-6); HEMATOCRIT 29.3 % (42.0-52.0); HEMOGLOBIN 8.9 g/dl (14.0-17.9); LYMPHOCYTES # (AUTO) 0.3 X10'3 (1.1-4.8); LYMPHOCYTES % (AUTO) 3.4 % (21-51); MEAN CORPUSCULAR HEMOGLOBIN 23.4 PG (27.0-31.0); MEAN CORPUSCULAR HGB CONC 30.2 % (33.0-36.5); MEAN CORPUSCULAR VOLUME 77.3 FL (78-98); MEAN PLATELET VOLUME 8.9 FL (7.4-10.4); MONOCYTES % (AUTO) 9.9 % (2-12); NEUTROPHILS # (AUTO) 8.4 X10'3 (1.8-7.7); NEUTROPHILS % (AUTO) 84.3 % (42-75); PLATELET COUNT 139 X10'3 (140-440); RED BLOOD COUNT 3.79 X10'6 (4.70-6.10); RED CELL DISTRIBUTION WIDTH 20.1 % (11.5-14.5)
[2017-11-14 03:37] LABS: ALBUMIN 2.4 G/DL (3.4-5.0); ANION GAP 4 (8-16); BLOOD UREA NITROGEN 20 MG/DL (7-18); CALCIUM 8.7 MG/DL (8.5-10.1); CHLORIDE 114 MMOL/L (99-107); CREATININE 1.67 MG/DL (0.60-1.10); GLUCOSE 114 MG/DL (70-104); POTASSIUM 3.4 MMOL/L (3.5-5.1); PREALBUMIN 9.3 MG/DL (19-36); SODIUM 150 MMOL/L (135-145); TOTAL CARBON DIOXIDE 31.7 MMOL/L (24-32); eGFR 43 ML/MIN
[2017-11-14 04:00] LABS: ABG HCO3 28.7 mmol/L (22.0-26.0); ABG OXYGEN SATURATION 96.4 % (95-98); ABG PCO2 (T) 54.4 mmHg (35.0-48.0); ABG PH (T) 7.338 (7.350-7.450); ABG PO2 (T) 86.5 mmHg (83-108); ALLEN'S TEST Positive; FCOHb 0.8 % (0.5-1.5); FMetHb 0.1 % (0.3-1.12); FO2Hb 95.5 % (94-100); MINUTE VOLUME 9 L/min; PATIENT TEMPERATURE 36.4; PEEP 8 cm H2O; RESPIRATORY RATE 20 b/min; RESPIRATORY RATE (OBSERVED) 20 b/min; TIDAL VOLUME 450 mL; TOTAL HEMOGLOBIN 10.1 G/dl (14.0-18.0)
[2017-11-14] MEDS: dextrose 5%-water 1,000 ML IV SCH (05:08)
[2017-11-14 07:20] LABS: MAGNESIUM 2.4 MG/DL (1.5-2.4); PHOSPHORUS 3.3 MG/DL (2.3-4.5)
[2017-11-14] MEDS: pantoprazole 40 MG vial IV SCH (07:55)
[2017-11-14] MEDS: lactobacillus rhamnosus 10,000 MMU CELLS/CAPSULE PO SCH ×2 (07:55→19:22)
[2017-11-14] MEDS: furosemide 40mg/4ml inj IV SCH ×2 (07:55→20:05)
[2017-11-14] MEDS: enoxaparin 80mg/0.8ml syringe SUBCUT SCH ×2 (07:57→19:13)
[2017-11-14] MEDS: docusate sodium 100mg/10ml UD cup PO SCH ×2 (07:57→19:22)
[2017-11-14] MEDS: emollient combination-Eucerin 250 ML LOTION TP SCH ×2 (07:58→20:05)
[2017-11-14] MEDS: acetaZOLAMIDE IV 500mg inj IV SCH ×2 (07:58→19:13)
[2017-11-14] MEDS: potassium Cl 40MEQ/250ML bag 250 ML IV PRN ×2 (09:57→18:39)
[2017-11-14] MEDS: dexmedetomidin/NS 400mcg/100ml 100 ML IV SCH ×2 (09:59→16:56)
[2017-11-14] MEDS: FENTANYL-0.9 % NACL/PF 100 ML IV PRN (11:32)
[2017-11-14] MEDS: LORazepam 2 mg/ml vial IV PRN (20:32)
[2017-11-15] VITALS (24 sets, daily range): BP systolic 100–123; BP diastolic 65–85
[2017-11-15] MEDS: piperacillin/tazo 3.375gm/50ml 50 ML IV SCH ×4 (01:44→19:30)
[2017-11-15] MEDS: LORazepam 2 mg/ml vial IV PRN (01:52)
[2017-11-15 02:39] LABS: BASOPHILS % (AUTO) 0.3 % (0-1); EOSINOPHILS # (AUTO) 0.2 X10'3 (0-0.9); EOSINOPHILS % (AUTO) 2.4 % (0-6); HEMATOCRIT 30.5 % (42.0-52.0); HEMOGLOBIN 9.2 g/dl (14.0-17.9); LYMPHOCYTES # (AUTO) 0.6 X10'3 (1.1-4.8); LYMPHOCYTES % (AUTO) 7.8 % (21-51); MEAN CORPUSCULAR HEMOGLOBIN 23.4 PG (27.0-31.0); MEAN CORPUSCULAR HGB CONC 30.2 % (33.0-36.5); MEAN CORPUSCULAR VOLUME 77.7 FL (78-98); MONOCYTES # (AUTO) 0.8 X10'3 (0-0.9); NEUTROPHILS # (AUTO) 6.2 X10'3 (1.8-7.7); NEUTROPHILS % (AUTO) 79.5 % (42-75); PLATELET COUNT 136 X10'3 (140-440); RED BLOOD COUNT 3.92 X10'6 (4.70-6.10); RED CELL DISTRIBUTION WIDTH 21.4 % (11.5-14.5); WHITE BLOOD COUNT 7.9 X10'3 (4.5-11.0)
[2017-11-15 02:52] LABS: ALBUMIN 2.5 G/DL (3.4-5.0); ANION GAP 7 (8-16); BLOOD UREA NITROGEN 20 MG/DL (7-18); BUN/CREATININE RATIO 11.6 (5.4-32.0); CHLORIDE 115 MMOL/L (99-107); CREATININE 1.72 MG/DL (0.60-1.10); GLUCOSE 88 MG/DL (70-104); MAGNESIUM 2.3 MG/DL (1.5-2.4); PHOSPHORUS 3.4 MG/DL (2.3-4.5); POTASSIUM 3.7 MMOL/L (3.5-5.1); SODIUM 151 MMOL/L (135-145); TOTAL CARBON DIOXIDE 28.8 MMOL/L (24-32); eGFR 41 ML/MIN
[2017-11-15 06:51] LABS: ABG BASE EXCESS -0.1 mmol/L (-2.0-3.0); ABG HCO3 25.8 mmol/L (22.0-26.0); ABG OXYGEN SATURATION 97.3 % (95-98); ABG PCO2 (T) 48.2 mmHg (35.0-48.0); ABG PH (T) 7.347 (7.350-7.450); ABG PO2 (T) 99.7 mmHg (83-108); ALLEN'S TEST Positive; FCOHb 0.9 % (0.5-1.5); FMetHb 0.1 % (0.3-1.12); FO2Hb 96.3 % (94-100); MINUTE VOLUME 17 L/min; RESPIRATORY RATE 16 b/min; RESPIRATORY RATE (OBSERVED) 23 b/min
[2017-11-15] MEDS: dexmedetomidin/NS 400mcg/100ml 100 ML IV SCH ×2 (07:03→18:07)
[2017-11-15] MEDS: pantoprazole 40 MG vial IV SCH (07:20)
[2017-11-15] MEDS: furosemide 40mg/4ml inj IV SCH ×2 (07:21→19:30)
[2017-11-15] MEDS: acetaZOLAMIDE IV 500mg inj IV SCH ×2 (07:21→19:30)
[2017-11-15] MEDS: enoxaparin 80mg/0.8ml syringe SUBCUT SCH ×2 (07:22→19:30)
[2017-11-15] MEDS: lactobacillus rhamnosus 10,000 MMU CELLS/CAPSULE PO SCH ×2 (07:23→19:29)
[2017-11-15] MEDS: docusate sodium 100mg/10ml UD cup PO SCH ×2 (07:23→20:00)
[2017-11-15] MEDS: emollient combination-Eucerin 250 ML LOTION TP SCH ×2 (07:23→19:31)
[2017-11-16] VITALS (22 sets, daily range): BP systolic 96–139; BP diastolic 62–87
[2017-11-16] MEDS: dexmedetomidin/NS 400mcg/100ml 100 ML IV SCH ×2 (01:54→22:30)
[2017-11-16] MEDS: piperacillin/tazo 3.375gm/50ml 50 ML IV SCH ×2 (02:15→08:20)
[2017-11-16 03:01] LABS: BASOPHILS % (AUTO) 0.6 % (0-1); EOSINOPHILS # (AUTO) 0.1 X10'3 (0-0.9); EOSINOPHILS % (AUTO) 2.3 % (0-6); HEMATOCRIT 29.4 % (42.0-52.0); HEMOGLOBIN 8.8 g/dl (14.0-17.9); LYMPHOCYTES # (AUTO) 0.5 X10'3 (1.1-4.8); LYMPHOCYTES % (AUTO) 7.8 % (21-51); MEAN CORPUSCULAR HEMOGLOBIN 23.1 PG (27.0-31.0); MEAN CORPUSCULAR HGB CONC 30.1 % (33.0-36.5); MEAN CORPUSCULAR VOLUME 76.7 FL (78-98); MONOCYTES # (AUTO) 0.6 X10'3 (0-0.9); MONOCYTES % (AUTO) 9.8 % (2-12); NEUTROPHILS # (AUTO) 4.9 X10'3 (1.8-7.7); NEUTROPHILS % (AUTO) 79.5 % (42-75); PLATELET COUNT 143 X10'3 (140-440); RED BLOOD COUNT 3.83 X10'6 (4.70-6.10); RED CELL DISTRIBUTION WIDTH 20.8 % (11.5-14.5); WHITE BLOOD COUNT 6.2 X10'3 (4.5-11.0)
[2017-11-16 03:15] LABS: ALBUMIN 2.4 G/DL (3.4-5.0); ANION GAP 10 (8-16); BLOOD UREA NITROGEN 21 MG/DL (7-18); BUN/CREATININE RATIO 13.6 (5.4-32.0); CALCIUM 8.6 MG/DL (8.5-10.1); CHLORIDE 112 MMOL/L (99-107); CREATININE 1.54 MG/DL (0.60-1.10); GLUCOSE 91 MG/DL (70-104); MAGNESIUM 2.4 MG/DL (1.5-2.4); PHOSPHORUS 3.4 MG/DL (2.3-4.5); POTASSIUM 3.3 MMOL/L (3.5-5.1); SODIUM 148 MMOL/L (135-145); TOTAL CARBON DIOXIDE 25.9 MMOL/L (24-32); eGFR 47 ML/MIN
[2017-11-16] MEDS: potassium Cl oral solution 20 MEQ/15 ML PO PRN ×3 (04:14→12:22)
[2017-11-16 04:22] LABS: ANISOCYTOSIS 3+; HYPOCHROMASIA 1+; MICROCYTOSIS 2+; PLATELET ESTIMATE NORMAL
[2017-11-16] MEDS: docusate sodium 100mg/10ml UD cup PO SCH ×2 (08:00→20:00)
[2017-11-16] MEDS: emollient combination-Eucerin 250 ML LOTION TP SCH ×2 (08:00→19:37)
[2017-11-16] MEDS: pantoprazole 40 MG vial IV SCH (08:19)
[2017-11-16] MEDS: furosemide 40mg/4ml inj IV SCH ×2 (08:20→21:05)
[2017-11-16] MEDS: lactobacillus rhamnosus 10,000 MMU CELLS/CAPSULE PO SCH ×2 (08:20→19:35)
[2017-11-16] MEDS: acetaZOLAMIDE IV 500mg inj IV SCH (08:20)
[2017-11-16] MEDS: enoxaparin 80mg/0.8ml syringe SUBCUT SCH (08:20)
[2017-11-16] MEDS ORDERED: APIX5TAB3 PO (13:30)
[2017-11-16] MEDS: metoprolol tartrate 25mg tablet PO SCH ×2 (14:28→19:35)
[2017-11-16] MEDS: diltiazem SR 60mg capsule (twice daily) PO SCH (14:28)
[2017-11-16] MEDS: ceFAZolin 1GM/D5W- ADD-VANTAGE 50 ML IV SCH (16:41)
[2017-11-16] MEDS: apixaban 5mg tablet PO SCH (19:35)
[2017-11-17] VITALS (13 sets, daily range): BP systolic 100–136; BP diastolic 56–80
[2017-11-17] MEDS: ceFAZolin 1GM/D5W- ADD-VANTAGE 50 ML IV SCH ×2 (00:55→08:25)
[2017-11-17 02:50] LABS: BASOPHILS % (AUTO) 0.3 % (0-1); EOSINOPHILS # (AUTO) 0.2 X10'3 (0-0.9); EOSINOPHILS % (AUTO) 2.7 % (0-6); HEMATOCRIT 29.9 % (42.0-52.0); HEMOGLOBIN 9.1 g/dl (14.0-17.9); LYMPHOCYTES # (AUTO) 0.6 X10'3 (1.1-4.8); LYMPHOCYTES % (AUTO) 8.9 % (21-51); MEAN CORPUSCULAR HEMOGLOBIN 23.1 PG (27.0-31.0); MEAN CORPUSCULAR HGB CONC 30.4 % (33.0-36.5); MEAN CORPUSCULAR VOLUME 76.2 FL (78-98); MEAN PLATELET VOLUME 9.7 FL (7.4-10.4); MONOCYTES # (AUTO) 0.7 X10'3 (0-0.9); MONOCYTES % (AUTO) 11.1 % (2-12); NEUTROPHILS # (AUTO) 5.2 X10'3 (1.8-7.7); PLATELET COUNT 157 X10'3 (140-440); RED BLOOD COUNT 3.92 X10'6 (4.70-6.10); RED CELL DISTRIBUTION WIDTH 20.7 % (11.5-14.5); WHITE BLOOD COUNT 6.8 X10'3 (4.5-11.0)
[2017-11-17 03:10] LABS: ALBUMIN 2.5 G/DL (3.4-5.0); ANION GAP 8 (8-16); BLOOD UREA NITROGEN 20 MG/DL (7-18); BUN/CREATININE RATIO 12.7 (5.4-32.0); CALCIUM 8.6 MG/DL (8.5-10.1); CHLORIDE 112 MMOL/L (99-107); CREATININE 1.57 MG/DL (0.60-1.10); GLUCOSE 101 MG/DL (70-104); MAGNESIUM 2.4 MG/DL (1.5-2.4); POTASSIUM 3.2 MMOL/L (3.5-5.1); PREALBUMIN 12.5 MG/DL (19-36); SODIUM 147 MMOL/L (135-145); TOTAL CARBON DIOXIDE 26.6 MMOL/L (24-32); eGFR 46 ML/MIN
[2017-11-17] MEDS: potassium Cl oral solution 20 MEQ/15 ML PO PRN ×2 (04:46→08:26)
[2017-11-17] MEDS: docusate sodium 100mg/10ml UD cup PO SCH (08:00)
[2017-11-17] MEDS: emollient combination-Eucerin 250 ML LOTION TP SCH (08:00)
[2017-11-17] MEDS: furosemide 40mg/4ml inj IV SCH (08:25)
[2017-11-17] MEDS: lactobacillus rhamnosus 10,000 MMU CELLS/CAPSULE PO SCH (08:27)
[2017-11-17] MEDS: metoprolol tartrate 25mg tablet PO SCH (08:27)
[2017-11-17] MEDS: apixaban 5mg tablet PO SCH (08:27)
[2017-11-17] MEDS: diltiazem SR 60mg capsule (twice daily) PO SCH (08:28)
[2017-11-17] MEDS: pantoprazole 40 MG vial IV SCH (08:28)
[2017-11-17] MEDS: potassium Cl 20 mEq SR tablet PO SCH ×2 (10:27→13:41)
[2017-11-17] MEDS ORDERED: metoprolol tartrate 25mg tablet PO SCH (20:00)
== END 2017-11-17 14:00 | DRG 130 ==
LOC: ER 01:16 → ED HOLD 04:14 → MED 3N 13:02 → SUR 3N 10-31 17:30 → PCU 3S 11-06 07:05 → CICU 2S 11-06 12:00
PROVIDERS: ADMIT Family Medicine
PROC: BW251ZZ Computerized Tomography (CT Scan) of Chest, Abdomen and Pelvis using Low Osmolar Contrast (ICD-10-PCS; 2017-11-01)
PROC: 5A09357 Assistance with Respiratory Ventilation, Less than 24 Consecutive Hours, Continuous Positive Airway Pressure (ICD-10-PCS; 2017-11-06)
PROC: 5A09357 Assistance with Respiratory Ventilation, Less than 24 Consecutive Hours, Continuous Positive Airway Pressure (ICD-10-PCS; 2017-11-07)
PROC: 5A09357 Assistance with Respiratory Ventilation, Less than 24 Consecutive Hours, Continuous Positive Airway Pressure (ICD-10-PCS; 2017-11-08)
PROC: 30233L1 Transfusion of Nonautologous Fresh Plasma into Peripheral Vein, Percutaneous Approach (ICD-10-PCS; 2017-11-08)
PROC: 30233K1 Transfusion of Nonautologous Frozen Plasma into Peripheral Vein, Percutaneous Approach (ICD-10-PCS; 2017-11-08)
PROC: 5A1955Z Respiratory Ventilation, Greater than 96 Consecutive Hours (ICD-10-PCS; 2017-11-09)
PROC: 5A09357 Assistance with Respiratory Ventilation, Less than 24 Consecutive Hours, Continuous Positive Airway Pressure (ICD-10-PCS; 2017-11-09)
PROC: 0BH17EZ Insertion of Endotracheal Airway into Trachea, Via Natural or Artificial Opening (ICD-10-PCS; 2017-11-09)
PROC: 0W993ZX Drainage of Right Pleural Cavity, Percutaneous Approach, Diagnostic (ICD-10-PCS; 2017-11-09)
PROC: 0BC28ZZ Extirpation of Matter from Carina, Via Natural or Artificial Opening Endoscopic (ICD-10-PCS; 2017-11-10)
PROC: 02HV33Z Insertion of Infusion Device into Superior Vena Cava, Percutaneous Approach (ICD-10-PCS; 2017-11-11)
PROC: B548ZZA Ultrasonography of Superior Vena Cava, Guidance (ICD-10-PCS; 2017-11-11)
PROC: 0W9B3ZZ Drainage of Left Pleural Cavity, Percutaneous Approach (ICD-10-PCS; 2017-11-12)
PROC: 5A09457 Assistance with Respiratory Ventilation, 24-96 Consecutive Hours, Continuous Positive Airway Pressure (ICD-10-PCS; principal; 2017-11-14)
DX: J96.21 Acute and chronic respiratory failure with hypoxia (principal); N17.0 Acute kidney failure with tubular necrosis; I50.33 Acute on chronic diastolic (congestive) heart failure; G93.40 Encephalopathy, unspecified; E87.4 Mixed disorder of acid-base balance; J90 Pleural effusion, not elsewhere classified; L89.152 Pressure ulcer of sacral region, stage 2; I27.81 Cor pulmonale (chronic); I13.0 Hypertensive heart and chronic kidney disease with heart failure and stage 1 through stage 4 chronic kidney disease, or unspecified chronic kidney disease; J44.1 Chronic obstructive pulmonary disease with (acute) exacerbation; J96.22 Acute and chronic respiratory failure with hypercapnia; N18.3 Chronic kidney disease, stage 3 (moderate); R16.2 Hepatomegaly with splenomegaly, not elsewhere classified; E66.01 Morbid (severe) obesity due to excess calories; K44.9 Diaphragmatic hernia without obstruction or gangrene; D63.8 Anemia in other chronic diseases classified elsewhere; G47.30 Sleep apnea, unspecified; I48.0 Paroxysmal atrial fibrillation; Z68.41 Body mass index [BMI] 40.0-44.9, adult; Z79.01 Long term (current) use of anticoagulants; Z79.899 Other long term (current) drug therapy; Z86.73 Personal history of transient ischemic attack (TIA), and cerebral infarction without residual deficits; Z87.11 Personal history of peptic ulcer disease; Z99.81 Dependence on supplemental oxygen
CPT/HCPCS: 31645; 32555; 36415; 36569; 36600; 71045; 71046; 71250; 74018; 74176; 76775; 76937; 80048; 80053; 80069; 81001; 82042; 82150; 82570; 82803; 82945; 82948; 83036; 83615; 83735; 83880; 84100; 84132; 84134; 84156; 84300; 84484; 85018; 85025; 85610; 86870; 86885; 86900; 86901; 87070; 87077; 87186; 87207; 93005; 93922; 93970; 94002; 94003; 94640; 94660; 94760; 96374; 97110; 97116; 97161; 97530; 99285; A4315; A6209; A6213; A6258; A6446; A6449; A7015; C1894; C9113; J0690; J1120; J1650; J1940; J2001; J2060; J2250; J2405; J2543; J3430; J3480; J3490; J7030; J7042; J7070; J7512; J7614; J8540; P9047; P9059